=== PATIENT | female | born 2000 | race Hispanic/Latino ===

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

== ENCOUNTER 2021-08-29 19:32 | Emergency (ER) | payer OTHER, MEDICAID, SELFPAY ==
[2021-08-29] VITALS (7 sets, daily range): BP systolic 125–155; BP diastolic 80–93; PULSE 84–100; RESP 14–24; TEMP 36.6; O2SAT 97–100
--- NOTE | 2021-08-29 19:45 | DI.RAD.S_ITS ---
PROCEDURE: XR CHEST 1V INDICATIONS: chest pain TECHNIQUE: One view of the chest was acquired. COMPARISON: [facility], CR, XR CHEST 1V, 04/19/2019, 20:20. FINDINGS: Surgical changes and devices: None. Lungs and pleura: Lungs are clear. No pleural effusions or pneumothorax. Mediastinum: Mediastinal contours appear normal. Heart size is normal. Bones and chest wall: No suspicious bony lesions. Overlying soft tissues appear unremarkable. IMPRESSION: No acute cardiopulmonary abnormality. Dictated by: Nba Power M.D. on 08/29/2021 at 20:06 Approved by: Nba Power M.D. on 08/29/2021 at 20:06
--- NOTE | 2021-08-29 19:46 | ED_ITS ---
HPI - Chest Pain General Chief Complaint: Chest Pain Stated Complaint: Chest Pains Time Seen by Provider: 08/29/21 19:34 Source: patient Mode of arrival: Ambulatory History of Present Illness HPI narrative: 21-year-old female nonsmoker without chronic medical problems presents with a chief complaint of anterior chest and epigastric pain that started about 24 hours ago. She states it is worse with a deep breath and with palpation, she f eels like it may also give worse when she eats. She has had some nausea and a few episodes of vomiting that did not seem to affect her discomfort. She denies any obvious palliation or radiation of her discomfort. She is a little bit short of breath and has had some cough. She denies fever or chills nor recent travel. She has had no history of blood clot or recent injury. She denies lower extremity pain or swelling. She has had no vaginal bleeding or discharge and denies urinary symptoms such as dysuria, frequency or urgency. Related Data Previous Rx's Medication Instructions Recorded ketorolac 10 mg tablet 10 mg PO Q6H PRN #14 tab 08/29/21 pantoprazole 40 mg tablet,delayed 40 mg PO DAILY #30 tab 08/29/21 release (Protonix) Allergies Allergy/AdvReac Type Severity Reaction Status Date / Time No Known Drug Allergies Allergy Verified 04/19/19 19:12 Review of Systems Review of Systems Narrative: GENERAL: Denies chills, fatigue, malaise, fever, sweats. HEENT: Denies sinus pain, ear pain, sore throat, difficulty swallowing, dizziness. RESPIRATORY: See HPI CARDIOVASCULAR: See HPI GASTROINTESTINAL: See HPI : Denies dysuria, frequency, incontinence, hematuria, urinary retention. MUSCULOSKELETAL: denies weakness, joint pain, or bony pain SKIN: Denies rash, skin lesions, or other NEUROLOGIC: Denies weakness, headache, numbness, change in speech, confusion, seizures, incoordination. PSYCHIATRIC: No concerning psychosocial issues. 12 point review of systems is negative except for those stated above Patient History Family History Mother Heart attack Social History Smoking Status: Never smoker Smoking Status: Never smoker alcohol intake frequency: 0-2 drinks per day Substance Use Type: does not use Exam Narrative Exam Narrative: GENERAL: [21 year old patient appears stated age. Well-developed patient, in mild distress. Obviously uncomfortable, tearful HEAD: Atraumatic. Normocephalic. EYES: Pupils equal round and reactive. Extraocular motions intact. No scleral icterus. No injection or drainage. ENT: Nose without bleeding, purulent drainage. Throat without erythema, tonsillar hypertrophy or exudate. Airway patent. NECK: Trachea midline. Non tender CARDIOVASCULAR: Regular rate and rhythm without murmurs, gallops, or rubs. C entral anterior chest tender to palpation, this worsens the pain the brought her in RESPIRATORY: Clear to auscultation. Breath sounds equal bilaterally. No wheezes, rales, or rhonchi. GASTROINTESTINAL: Abdomen soft, non-tender, nondistended. EXTREMITIES: No edema or joint tenderness. BACK: Nontender without deformity or crepitance. No flank tenderness. NEURO: AOx3. SKIN: No rash or erythema of visible areas Initial Vital Signs Initial Vital Signs: Vital Signs Temperature 97.9 F 08/29/21 19:44 Pulse Rate 91 H 08/29/21 19:44 Respiratory Rate 22 08/29/21 19:44 Blood Pressure 155/93 H 08/29/21 19:44 Pulse Oximetry 99 08/29/21 19:44 Course Orders Ordered: ED Orders 08/29/21 19:45 XR chest 1V Stat EKG-12 Lead Stat 08/29/21 19:47 CRP [C-Reactive Protein Quant] Stat Complete Blood Count AUTO DIFF Stat Comprehensive Metabolic Panel Stat D Dimer Stat ESR [Erythrocyte Sedimentation Rate] Stat Lipase Stat Magnesium Stat NT-proBNP (BNP-Adult 18+) Stat Troponin & CK Cardiac Panel Stat 08/29/21 19:50 US abdomen limited Stat Discontinued Medications Al Hydrox/Mg Hydrox/Simethicone 20 ml/ Lidocaine HCl 15 ml 0 ml PO NOW ONE Stop: 08/29/21 19:47 Last Admin: 08/29/21 20:00 Dose: 45 ml Documented by: DALITE Sodium Chloride (Normal Saline 0.9%) 1,000 mls @ 150 mls/hr IV CONT SWAPNA Last Infusion: 08/29/21 21:10 Dose: 0 mls/hr Documented by: Admin: 08/29/21 19:59 Dose: 150 mls/hr Documented by: MYAH Ketorolac Tromethamine (Ketorolac 30 Mg/Ml Vial) 15 mg IV NOW ONE Stop: 08/29/21 19:47 Last Admin: 08/29/21 19:59 Dose: 15 mg Documented by: MYAH Pantoprazole Sodium (Pantoprazole 40 Mg Vial) 40 mg IV NOW ONE Stop: 08/29/21 19:47 Last Admin: 08/29/21 20:00 Dose: 40 mg Documented by: MYAH Reevaluation(s) Reevaluation #1: Patient has significant, if not complete resolution of symptoms after above- stated therapies Vital Signs Vital signs: Vital Signs - 8 hr 08/29/21 20:00 08/29/21 20:30 08/29/21 21:00 Pulse Rate 98 H 88 98 H Respiratory Rate 14 24 24 Blood Pressure Pulse Oximetry 100 100 99 08/29/21 21:30 08/29/21 21:40 Pulse Rate 85 84 Respiratory Rate 24 23 Blood Pressure 125/80 Pulse Oximetry 99 97 MDM - Chest Pain Lab Data Result diagrams: 08/29/21 19:47 08/29/21 19:47 Labs: Lab Results 08/29/21 08/29/21 08/29/21 Range/Units 19:47 19:47 19:47 WBC 12.4 H (4.5-11.0) X10^3/uL RBC 5.02 (4.0-5.2) X10^6/uL Hgb 14.5 (12.0-16.0) g/dL Hct 42.7 (36-46) % MCV 85.2 (80-100) fL MCH 28.9 (26-34) PG MCHC 34.0 (30-36) % RDW 13.5 (11.6-14.8) % Plt Count 291 (150-400) X10^3/uL Neut % (Auto) 61.6 (50-75) % Lymph % (Auto) 29.7 (25-40) % [place] % (Auto) 6.7 (3-14) % Eos % (Auto) 1.4 L (2-4) % Baso % (Auto) 0.6 (0-2) % Neut # (Auto) 7700 H (7893-6729) /uL Lymph # (Auto) 3700 (8353-9086) /uL [place] # (Auto) 800 (0-900) /uL Eos # (Auto) 200 (0-450) /uL Baso # (Auto) 100 (0-100) /uL ESR 20 (0-20) MM/HR D-Dimer (<230) ng/mL Sodium 143 (137-145) mmol/L Potassium 4.5 (3.4-5.1) mmol/L Chloride 107 (98-107) mmol/L Carbon Dioxide 27 (22-32) mmol/L BUN 13 (7-17) mg/dL Creatinine 0.69 (0.52-1.04) mg/dL Estimated GFR > 60 (>60) mL/min BUN/Creatinine Ratio 18.8 (6-22) Glucose 101 H (70-100) mg/dL Calcium 9.4 (8.4-10.2) mg/dL Magnesium 2.2 (1.6-2.3) mg/dL Total Bilirubin 0.7 (0.2-1.3) mg/dL AST 30 (14-36) IU/L ALT 20 (<35) IU/L Alkaline Phosphatase 101 (38-126) U/L Total Creatine Kinase 91 (30-135) U/L CK-MB (CK-2) TNP CK-MB (CK-2) Rel Index TNP Troponin I < 0.012 (0.01-0.034) ng/mL C-Reactive Protein (<1.0) mg/dL NT-Pro-B Natriuret Pep (<125) pg/mL Total Protein 8.8 H (6.3-8.2) g/dL Albumin 4.9 (3.5-5.0) g/dL Globulin 3.9 (1.7-4.1) g/dL Albumin/Globulin Ratio 1.3 (1.0-2.8) Lipase 78 (23-300) U/L 08/29/21 08/29/21 Range/Units 19:47 19:47 WBC (4.5-11.0) X10^3/uL RBC (4.0-5.2) X10^6/uL Hgb (12.0-16.0) g/dL Hct (36-46) % MCV (80-100) fL MCH (26-34) PG MCHC (30-36) % RDW (11.6-14.8) % Plt Count (150-400) X10^3/uL Neut % (Auto) (50-75) % Lymph % (Auto) (25-40) % [place] % (Auto) (3-14) % Eos % (Auto) (2-4) % Baso % (Auto) (0-2) % Neut # (Auto) (2526-0715) /uL Lymph # (Auto) (6914-9296) /uL [place] # (Auto) (0-900) /uL Eos # (Auto) (0-450) /uL Baso # (Auto) (0-100) /uL ESR (0-20) MM/HR D-Dimer < 200 (<230) ng/mL Sodium (137-145) mmol/L Potassium (3.4-5.1) mmol/L Chloride (98-107) mmol/L Carbon Dioxide (22-32) mmol/L BUN (7-17) mg/dL Creatinine (0.52-1.04) mg/dL Estimated GFR (>60) mL/min BUN/Creatinine Ratio (6-22) Glucose (70-100) mg/dL Calcium (8.4-10.2) mg/dL Magnesium (1.6-2.3) mg/dL Total Bilirubin (0.2-1.3) mg/dL AST (14-36) IU/L ALT (<35) IU/L Alkaline Phosphatase (38-126) U/L Total Creatine Kinase (30-135) U/L CK-MB (CK-2) CK-MB (CK-2) Rel Index Troponin I (0.01-0.034) ng/mL C-Reactive Protein 0.7 (<1.0) mg/dL NT-Pro-B Natriuret Pep 30 (<125) pg/mL Total Protein (6.3-8.2) g/dL Albumin (3.5-5.0) g/dL Globulin (1.7-4.1) g/dL Albumin/Globulin Ratio (1.0-2.8) Lipase (23-300) U/L Imaging Data US - abdomen: Radiologist's Impression: [address] [address] Ultrasound Report Signed Patient: SYLVIA HAMMOND MR#: [id number] : 2000 Acct:[id number] Age/Sex: 21 / F Date of Service: 08/29/21 Loc: ED Accession Number: [id number] ?? Procedure: US abdomen limited Ordering Provider: Jacques Danielle D.O. PROCEDURE:? US ABDOMEN LIMITED ? INDICATIONS:? EPIGASTRIC PAIN; N/V ? TECHNIQUE:? Real-time scanning was performed of the abdominal, with image documentation.? ? COMPARISON:? None. ? FINDINGS:? ? Liver:? Liver is normal in size and homogeneous in echotexture.? Left lobe of the liver is not well seen due to bowel gas.? ? Gallbladder:? Nondilated. No stones or sludge. Normal gallbladder wall thickness. No pericholecystic fluid. Negative sonographic Rivera's sign.? ? Biliary ducts:? Intrahepatic bile ducts are non-dilated.? Extrahepatic bile duct caliber measures 3 mm.? Normal is 6-7 mm or less in diameter, or 10 mm or less post-cholecystectomy.? ? Pancreas:? Not well seen.? ? ? IMPRESSION:? Exam is somewhat limited due to acoustic windows. ? No acute cholecystitis.? No gallstones. ? Dictated by: Nba Power M.D. on 08/29/2021 at 20:47 ? ? Chest x-ray: Radiologist's Impression: [place] [address] XRay Report Signed Patient: SYLVIA HAMMOND MR#: [id number] : 2000 Acct:[id number] Age/Sex: 21 / F Date of Service: 08/29/21 Loc: ED Accession Number: [id number] ?? Procedure: XR chest 1V Ordering Provider: Jacques Danielle D.O. PROCEDURE:? XR CHEST 1V ? INDICATIONS:? chest pain ? TECHNIQUE:? One view of the chest was acquired.? ? COMPARISON:? [facility], , XR CHEST 1V, 04/19/2019, 20:20. ? FINDINGS:? ? Surgical changes and devices:? None.? ? Lungs and pleura:? Lungs are clear.? No pleural effusions or pneumothorax.? ? Mediastinum:? Mediastinal contours appear normal.? Heart size is normal.? ? Bones and chest wall:? No suspicious bony lesions.? Overlying soft tissues appear unremarkable.? ? IMPRESSION:? No acute cardiopulmonary abnormality. ? ? ? Dictated by: Nba Power M.D. on 08/29/2021 at 20:06 ? ? Approved by: Nba Power M.D. on 08/29/2021 at 20:06 ? MDM Narrative Medical decision making narrative: Multiple causes of chest pain considered including CO, PE, pneumothorax, pneumonia, aortic dissection, and pleurisy. Patient reports no radiation, no diaphoresis, no provocation with exertion, and no vomiting Gallbladder and pancreatic disease considered but thought unlikely given lack of lab or imaging findings Patient's symptoms improved over duration of stay with above-stated therapies. Findings and discharge diagnosis discussed with patient/family followed by verbalization of understanding Return precautions discussed with patient/family whom verbalize understanding. Discharge Plan Departure Patient Disposition: Home Clinical Impression: Atypical chest pain Instructions: DI for Atypical Chest Pain Activity Restrictions/Additional Instructions: *You have been diagnosed with [atypical chest pain. As we discussed your hist ory and physical exam as well as labs, EKG and imaging are very reassuring and there is no evidence of heart attack, blood clot, swelling around your heart, gallbladder disease or other diagnosis that would require a specific or immediate intervention *What to do: *Please continue to take your regular medications as directed. [x ] New medication prescriptions sent to your pharmacy: [[facility] in [place] ] [ ] New medication written as a paper prescription [ ] No new medications given *Please follow up with your primary care provider in 2-3 days, call for an appointment. Let them know you were seen in the Emergency Department and that we ask that you be seen in follow up. We will electronically transmit a record of today's note if your PCP is in our system *If you do not have a primary care provider please contact the [facility] Resource line at [phone]. They will ask some questions about your medical history and help get you set up with a doctor in the community. *Return to Emergency Department if you should have any new, worsening or concerning symptoms, such as [fever greater than 101 F, shaking chills, worsening pain, persistent vomiting or other bothersome symptoms] Prescriptions: New ketorolac 10 mg tablet 10 mg PO Q6H PRN (Reason: pain) Qty: 14 0RF pantoprazole [Protonix] 40 mg tablet,delayed release (DR/EC) 40 mg PO DAILY Qty: 30 0RF
--- NOTE | 2021-08-29 19:50 | DI.US.S_ITS ---
PROCEDURE: US ABDOMEN LIMITED INDICATIONS: EPIGASTRIC PAIN; N/V TECHNIQUE: Real-time scanning was performed of the abdominal, with image documentation. COMPARISON: None. FINDINGS: Liver: Liver is normal in size and homogeneous in echotexture. Left lobe of the liver is not well seen due to bowel gas. Gallbladder: Nondilated. No stones or sludge. Normal gallbladder wall thickness. No pericholecystic fluid. Negative sonographic Rivera's sign. Biliary ducts: Intrahepatic bile ducts are non-dilated. Extrahepatic bile duct caliber measures 3 mm. Normal is 6-7 mm or less in diameter, or 10 mm or less post-cholecystectomy. Pancreas: Not well seen. IMPRESSION: Exam is somewhat limited due to acoustic windows. No acute cholecystitis. No gallstones. Dictated by: Nba Power M.D. on 08/29/2021 at 20:47 Approved by: Nba Power M.D. on 08/29/2021 at 20:49
[2021-08-29] MEDS: KETOROLAC 30 MG/ML VIAL 15 MG IV (19:59)
[2021-08-29] MEDS: SODIUM CHLORIDE 0.9% 1,000 ML 150 ML IV (19:59)
[2021-08-29 20:00] LABS: Add Manual Diff / Slide Review NO; Basophils Absolute Auto 100 /uL (0-100); Basophils Percent Auto 0.6 % (0-2); Eosinophils Absolute Auto 200 /uL (0-450); Eosinophils Percent Auto 1.4 % (2-4); Hematocrit 42.7 % (36-46); Hemoglobin 14.5 g/dL (12.0-16.0); Lymphocytes Absolute Auto 3700 /uL (1100-4500); Lymphocytes Percent Auto 29.7 % (25-40); Mean Corpuscular Hemoglobin 28.9 PG (26-34); Mean Corpuscular Volume 85.2 fL (80-100); Monocytes Absolute Auto 800 /uL (0-900); Monocytes Percent Auto 6.7 % (3-14); Neutrophils Absolute Auto 7700 /uL (1500-7000); Neutrophils Percent Auto 61.6 % (50-75); Platelet Count 291 X10^3/uL (150-400); Red Blood Cell Count 5.02 X10^6/uL (4.0-5.2); Red Cell Distribution Width 13.5 % (11.6-14.8); White Blood Cell Count 12.4 X10^3/uL (4.5-11.0)
[2021-08-29] MEDS: MAG HYDROX/ALUMINUM/SIMETH SUS 20 ML, LIDOCAINE VISCOUS 2% 15 ML PO (20:00)
[2021-08-29] MEDS: PANTOPRAZOLE 40 MG VIAL IV (20:00)
[2021-08-29 20:06] LABS: D Dimer < 200 ng/mL (<230)
[2021-08-29 20:07] LABS: Alanine Aminotransferase 20 IU/L (<35); Albumin 4.9 g/dL (3.5-5.0); Albumin Globulin Ratio 1.3 (1.0-2.8); Alkaline Phosphatase 101 U/L (38-126); Aspartate Aminotransferase 30 IU/L (14-36); BUN Creatinine Ratio 18.8 (6-22); Bilirubin Total 0.7 mg/dL (0.2-1.3); Blood Urea Nitrogen 13 mg/dL (7-17); Calcium 9.4 mg/dL (8.4-10.2); Carbon Dioxide 27 mmol/L (22-32); Chloride 107 mmol/L (98-107); Creatine Kinase 91 U/L (30-135); Estimated Glomerular Filt Rate > 60 mL/min (>60); Globulin 3.9 g/dL (1.7-4.1); Glucose 101 mg/dL (70-100); Lipase 78 U/L (23-300); Magnesium 2.2 mg/dL (1.6-2.3); Potassium 4.5 mmol/L (3.4-5.1); Sodium 143 mmol/L (137-145); Total Protein 8.8 g/dL (6.3-8.2)
[2021-08-29 20:11] LABS: C-Reactive Protein Quant 0.7 mg/dL (<1.0)
[2021-08-29 20:12] LABS: HEMOLYSIS 86 (0-50)
[2021-08-29 20:16] LABS: NT-proBNP (BNP-Adult 18+) 30 pg/mL (<125)
[2021-08-29 20:17] LABS: Erythrocyte Sedimentation Rate 20 MM/HR (0-20)
[2021-08-29 20:19] LABS: Troponin I < 0.012 ng/mL (0.01-0.034)
== END 2021-08-29 22:24 | disposition home or self-care (01) ==
PROVIDERS: Emergency Provider Emergency Medicine
DX: R07.89 Other chest pain (principal)
CPT/HCPCS: 36415; 71045; 76705; 80053; 82550; 83690; 83735; 83880; 84484; 85025; 85379; 85651; 86140; 93005; 96361; 96374; 96375; 99284; C9113; J1885

== ENCOUNTER 2021-08-31 20:53 | Emergency (ER) | payer OTHER, MEDICAID, SELFPAY ==
[2021-08-31 20:58] VITALS: BP 143/91; PULSE 98; RESP 17; TEMP 37.1; O2SAT 95; BMI 43.8
[2021-08-31 21:35] VITALS: BP 133/91; PULSE 82; RESP 18; TEMP 36.8; O2SAT 99
--- NOTE | 2021-08-31 21:58 | ED.CHESTPAIN ---
HPI - Chest Pain General Chief Complaint: Chest Pain Stated Complaint: chest pain Time Seen by Provider: 08/31/21 21:16 Source: patient Mode of arrival: Ambulatory Limitations: no limitations History of Present Illness HPI narrative: 21-year-old female nonsmoker without chronic medical problems presents with a chief complaint of anterior chest and epigastric pain that started a few days ago. She was seen and evaluated in had extensive evaluation including labs, ultrasound and chest x-ray. She had improvement in symptoms after anti-inflammatories nausea meds and antacids and was discharged home with similar prescriptions. She returns because her pain in the upper belly is worse and she has been vomiting. She states that she experiences brief relief of her symptoms after vomiting. She states her pain is worse when she lays flat. She denies any fever or chills. She is not short of breath. Related Data Previous Rx's Medication Instructions Recorded ketorolac 10 mg tablet 10 mg PO Q6H PRN #14 tab 08/29/21 pantoprazole 40 mg tablet,delayed 40 mg PO DAILY #30 tab 08/29/21 release (Protonix) ondansetron 4 mg disintegrating 4 mg PO TID-QID PRN #10 tab 09/01/21 tablet Allergies Allergy/AdvReac Type Severity Reaction Status Date / Time No Known Drug Allergies Allergy Verified 04/19/19 19:12 Review of Systems Review of Systems Narrative: GENERAL: Denies chills, fatigue, malaise, fever, sweats. HEENT: Denies sinus pain, ear pain, sore throat, difficulty swallowing, dizziness. RESPIRATORY: Denies dyspnea, cough, wheezing, hemoptysis, sputum. CARDIOVASCULAR: Denies chest pain, palpitations, orthopnea, edema, GASTROINTESTINAL: See HPI : Denies dysuria, frequency, incontinence, hematuria, urinary retention. MUSCULOSKELETAL: denies weakness, joint pain, or bony pain SKIN: Denies rash, skin lesions, or other NEUROLOGIC: Denies weakness, headache, numbness, change in speech, confusion, seizures, incoordination. PSYCHIATRIC: No concerning psychosocial issues. 12 point review of systems is negative except for those stated above Patient History Family History Mother Heart attack Social History Smoking Status: Never smoker Smoking Status: Never smoker alcohol intake frequency: holidays/special occasions only Substance Use Type: does not use Exam Narrative Exam Narrative: GENERAL: [21] year old patient appears stated age. Well-developed patient, in mild distress. HEAD: Atraumatic. Normocephalic. EYES: Pupils equal round and reactive. Extraocular motions intact. No scleral icterus. No injection or drainage. ENT: Nose without bleeding, purulent drainage. Throat without erythema, tonsillar hypertrophy or exudate. Airway patent. NECK: Trachea midline. Non tender CARDIOVASCULAR: Regular rate and rhythm without murmurs, gallops, or rubs. RESPIRATORY: Clear to auscultation. Breath sounds equal bilaterally. No wheezes, rales, or rhonchi. GASTROINTESTINAL: Abdomen soft, tender in the epigastric, nondistended. EXTREMITIES: No edema or joint tenderness. BACK: Nontender without deformity or crepitance. No flank tenderness. NEURO: AOx3. SKIN: No rash or erythema of visible areas Initial Vital Signs Initial Vital Signs: Vital Signs Temperature 98.7 F 08/31/21 20:58 Pulse Rate 98 H 08/31/21 20:58 Respiratory Rate 17 08/31/21 20:58 Blood Pressure 143/91 H 08/31/21 20:58 Pulse Oximetry 95 08/31/21 20:58 Course Orders Ordered: ED Orders 08/31/21 21:01 EKG-12 Lead Stat 08/31/21 22:10 Complete Blood Count AUTO DIFF Stat Comprehensive Metabolic Panel Stat Lipase Stat NT-proBNP (BNP-Adult 18+) Stat Procalcitonin Stat Troponin & CK Cardiac Panel Stat 08/31/21 22:44 US abdomen limited Stat 08/31/21 23:35 CT abdomen pelvis w con Stat Sodium Chloride (Normal Saline 0.9%) 1,000 mls @ 150 mls/hr IV CONT SWAPNA Last Admin: 08/31/21 22:28 Dose: 150 mls/hr Documented by: CINDY Discontinued Medications Ondansetron HCl (Ondansetron 4 Mg/2 Ml Inj) 4 mg IV NOW ONE Stop: 08/31/21 22:00 Last Admin: 08/31/21 22:28 Dose: 4 mg Documented by: CINDY Pantoprazole Sodium (Pantoprazole 40 Mg Vial) 40 mg IV NOW ONE Stop: 08/31/21 22:04 Last Admin: 08/31/21 22:28 Dose: 40 mg Documented by: CINDY Vital Signs Vital signs: Vital Signs - 8 hr 08/31/21 20:58 08/31/21 21:35 Temperature 98.7 F 98.2 F Pulse Rate 98 H 82 Respiratory Rate 17 18 Blood Pressure 143/91 H 133/91 H Pulse Oximetry 95 99 MDM - Chest Pain Lab Data Result diagrams: 08/31/21 22:10 08/31/21 22:10 Labs: Lab Results 08/31/21 08/31/21 Range/Units 22:10 22:10 WBC 10.9 (4.5-11.0) X10^3/uL RBC 4.56 (4.0-5.2) X10^6/uL Hgb 13.2 (12.0-16.0) g/dL Hct 38.7 (36-46) % MCV 85.0 (80-100) fL MCH 29.0 (26-34) PG MCHC 34.1 (30-36) % RDW 13.4 (11.6-14.8) % Plt Count 268 (150-400) X10^3/uL Neut % (Auto) 50.6 (50-75) % Lymph % (Auto) 39.3 (25-40) % [place] % (Auto) 7.8 (3-14) % Eos % (Auto) 1.4 L (2-4) % Baso % (Auto) 0.9 (0-2) % Neut # (Auto) 5500 (2098-9076) /uL Lymph # (Auto) 4300 (4829-7533) /uL [place] # (Auto) 800 (0-900) /uL Eos # (Auto) 200 (0-450) /uL Baso # (Auto) 100 (0-100) /uL Sodium 142 (137-145) mmol/L Potassium 3.8 (3.4-5.1) mmol/L Chloride 107 (98-107) mmol/L Carbon Dioxide 28 (22-32) mmol/L BUN 12 (7-17) mg/dL Creatinine 0.69 (0.52-1.04) mg/dL Estimated GFR > 60 (>60) mL/min BUN/Creatinine Ratio 17.4 (6-22) Glucose 97 (70-100) mg/dL Calcium 9.1 (8.4-10.2) mg/dL Total Bilirubin 0.6 (0.2-1.3) mg/dL AST 20 (14-36) IU/L ALT 17 (<35) IU/L Alkaline Phosphatase 96 (38-126) U/L Total Creatine Kinase 78 (30-135) U/L CK-MB (CK-2) TNP CK-MB (CK-2) Rel Index TNP Troponin I < 0.012 (0.01-0.034) ng/mL NT-Pro-B Natriuret Pep 21 (<125) pg/mL Total Protein 7.7 (6.3-8.2) g/dL Albumin 4.4 (3.5-5.0) g/dL Globulin 3.3 (1.7-4.1) g/dL Albumin/Globulin Ratio 1.3 (1.0-2.8) Lipase 70 (23-300) U/L Procalcitonin 0.03 (<0.5) ng/mL Point of Care Testing Test Results Negative Urine Dip Bedside Urine Glucose Negative Bedside Urine Bilirubin - Negative Bedside Urine Ketone - Negative Urine Specific [place] 1.030 Bedside Urine Occult Blood +/- Bedside Urine pH 6.0 Bedside Urine Protein - Negative Bedside Urine Urobilinogen - Negative Bedside Urine Nitrite - Negative Bedside Urine Leukocytes - Negative Esterase Imaging Data US - abdomen: Radiologist's Impression: [place] [id number] Ultrasound Report Signed Patient: SYLVIA HAMMOND MR#: [id number] : 2000 Acct:[id number] Age/Sex: 21 / F Date of Service: 08/31/21 Loc: ED Accession Number: [id number] ?? Procedure: US abdomen limited Ordering Provider: Jacques Danielle D.O. PROCEDURE:? US ABDOMEN LIMITED ? INDICATIONS:? EPIGASTRIC PAIN ? TECHNIQUE:? Real-time scanning was performed of the abdominal and retroperitoneal organs, with image documentation.? ? COMPARISON:? [facility], US ABDOMEN LIMITED, 08/29/2021, 20:25. ? FINDINGS:? ? Liver:? Normal size.? Increased in echogenicity. ? Gallbladder:? Nondilated. No stones or sludge. Normal gallbladder wall thickness. No pericholecystic fluid. Negative sonographic Rivera's sign.? ? Biliary ducts:? Intrahepatic bile ducts are non-dilated.? Extrahepatic bile duct caliber measures 6 mm.? Normal is 6-7 mm or less in diameter, or 10 mm or less post-cholecystectomy.? ? Pancreas:? Visualized portions of the pancreas are sonographically normal.? Tail not well seen due to bowel gas. ? ? IMPRESSION:? 1. No acute cholecystitis demonstrated.? No gallstones. ? 2. Increased hepatic echogenicity most consistent with hepatic steatosis. Other forms of hepatocellular disease could have similar appearance. ? ? ? Dictated by: Nba Power M.D. on 08/31/2021 at 23:46 ? ? Approved by: Nba Power M.D. on 08/31/2021 at 23:47 ? 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 All Time ??:?? All Subcategories Filter Laboratory Imaging Microbiology Pathology Blood Bank Tests Cardiovascular Other Specialty DATE TYPE STATUS REF RANGE/AUTHOR Hx 08/31/21 23:35 Abdomen/Pelvis CT Signed Call,Nba 08/31/21 22:44 Abdomen Ultrasound Signed Call,Nba 08/29/21 19:50 Abdomen Ultrasound Signed Call,Nba 08/29/21 19:45 Chest X-Ray Signed Call,Nba 04/19/19 20:10 Chest X-Ray Signed Leena Ward [facility] ED 21, F?2000 MRN#? [id number] REG ER,?Main ED??R07?? 170.18cm 127.006kg BMI: 43.9kg/m? Chest Pain Acc#? [id number] Resus Status Not Ordered No Hx Avail Special Indicators No Data to Display Home Meds Not Confirmed Prescription Monitoring Program MEDICATIONS (INSTRUCTIONS) LAST TAKEN Active ??ketorolac ??10 [id number]#14 tab ??pantoprazole [Protonix] ??40 mgPODAILY#30 tab Allergies No Known Drug Allergies Problems ? ONSET Atypical chest pain Vital Signs 08/31/21 21:35 BP 133/91?H Pulse 82? Resp 18? Temp 98.2 F? O2 Sat 99? Delivery Room Air? Diagnostics Reports LIQUIDANO NAVDEEP,SYLVIA??21??F??2000 ? Allergy/Adv: No Known Drug Allergies (More??) Close Abdomen/Pelvis CT (Signed) Call, - 08/31/21 Abdomen Ultrasound (Signed) Call,08/31/21 Abdomen Ultrasound (Signed) Call,08/29/21 Chest X-Ray (Signed) Call,08/29/21 Chest X-Ray (Signed) Leena Ward - 04/19/19 Launch?[place] [address] CT Scan Report Signed Patient: SYLVIA HAMMOND MR#: [id number] : 2000 Acct:[id number] Age/Sex: 21 / F Date of Service: 08/31/21 Loc: ED Accession Number: [id number] ?? Procedure: CT abdomen pelvis w con Ordering Provider: Jacques Danielle D.O. PROCEDURE:? CT ABDOMEN PELVIS W CON ? INDICATIONS:? severe abdominal pain ? TECHNIQUE:? After the administration of IV contrast, axial sections were acquired from the lung bases to the pubic symphysis.? Coronal and sagittal reformats were performed.? For radiation dose reduction, the following was used:? automated exposure control, adjustment of mA and/or kV according to patient size. ? COMPARISON:? [facility], , ABDOMEN LIMITED, 08/31/2021, 22:59. ? FINDINGS:? Image quality:? Excellent.? ? Lung bases:? Unremarkable.? ? Heart:? No significant findings. ? ? ABDOMEN: Liver:? No focal lesion.? ? Gallbladder:? Not distended.? No calcified gallstones. Biliary ducts:? Unremarkable.? ? Pancreas:? No peripancreatic fluid collection. Spleen:? No splenomegaly. Adrenal Glands:? No nodule. Kidneys and Ureters:? No hydronephrosis.? ? ? Stomach and Bowel:? Stomach, small bowel loops, and colon are unremarkable.? Appendix is not dilated, ().? Diverticulosis. Peritoneum:? No abnormal intraperitoneal fluid.? No free air.? ? Ventral Wall: ? No hernia.? Abdominal Nodes:? No retroperitoneal or mesenteric adenopathy by size criteria.? Vessels:? Aorta and inferior vena cava are normal in size.? ? PELVIS: Pelvic Organs:? Anteverted uterus.? ? Bladder:? No stones.? ? Pelvic Nodes: No enlarged lymph nodes.? Miscellaneous: No inguinal hernias are seen. ? ? ? Bones:? No suspicious lesion. ? ? IMPRESSION:? 1. Source for abdominal pain is not identified.? No free fluid.? ? 2. No bowel obstruction.? The appendix is not distended. ? ? ? Dictated by: Nba Power M.D. on 09/01/2021 at 0:27 ? ? Approved by: Nba Power M.D. on 09/01/2021 at 0:31 ? MDM Narrative Medical decision making narrative: Patient has repeat visit for epigastric pain, claiming a hurts worse this time. Her history and physical exam as well as labs and imaging are reassuring. She has significant improvement in symptoms with above-stated therapies. Her pain is well controlled and she is tolerating orals. There is no evidence of gallbladder disease, bowel obstruction or pancreatitis. Return precautions given and questions answered to her apparent satisfaction Discharge Plan Departure Patient Disposition: Home Instructions: DI for Epigastric Pain Activity Restrictions/Additional Instructions: *You have been diagnosed with [epigastric pain. Your history and physical exam are reassuring, labs are unremarkable and the repeat ultrasound and CT showed no significant findings. *What to do: *Please continue to take your regular medications as directed. [x ] New medication prescriptions sent to your pharmacy: [ ] [ ] New medication written as a paper prescription [ ] No new medications given *Please follow up with your primary care provider in 2-3 days, call for an appointment. Let them know you were seen in the Emergency Department and that we ask that you be seen in follow up. We will electronically transmit a record of today's note if your PCP is in our system *If you do not have a primary care provider please contact the [facility] Resource line at [phone]. They will ask some questions about your medical history and help get you set up with a doctor in the community. *Return to Emergency Department if you should have any new, worsening or concerning symptoms, such as [fever greater than 101 F, shaking chills, worsening pain, persistent vomiting or other bothersome symptoms] Prescriptions: New ondansetron 4 mg tablet,disintegrating 4 mg PO TID-QID PRN (Reason: nausea and vomiting) Qty: 10 0RF No Action ketorolac 10 mg tablet 10 mg PO Q6H PRN (Reason: pain) Qty: 14 0RF pantoprazole [Protonix] 40 mg tablet,delayed release (DR/EC) 40 mg PO DAILY Qty: 30 0RF Referrals: Nicolas Carr MD [Physician] -
[2021-08-31 22:21] LABS: Add Manual Diff / Slide Review NO; Basophils Absolute Auto 100 /uL (0-100); Basophils Percent Auto 0.9 % (0-2); Eosinophils Absolute Auto 200 /uL (0-450); Eosinophils Percent Auto 1.4 % (2-4); Hematocrit 38.7 % (36-46); Hemoglobin 13.2 g/dL (12.0-16.0); Lymphocytes Absolute Auto 4300 /uL (1100-4500); Lymphocytes Percent Auto 39.3 % (25-40); Mean Corpuscular HGB Conc 34.1 % (30-36); Monocytes Absolute Auto 800 /uL (0-900); Monocytes Percent Auto 7.8 % (3-14); Neutrophils Absolute Auto 5500 /uL (1500-7000); Neutrophils Percent Auto 50.6 % (50-75); Platelet Count 268 X10^3/uL (150-400); Red Blood Cell Count 4.56 X10^6/uL (4.0-5.2); Red Cell Distribution Width 13.4 % (11.6-14.8); White Blood Cell Count 10.9 X10^3/uL (4.5-11.0)
[2021-08-31] MEDS: PANTOPRAZOLE 40 MG VIAL IV (22:28)
[2021-08-31] MEDS: ONDANSETRON 4 MG/2 ML INJ IV (22:28)
[2021-08-31] MEDS: SODIUM CHLORIDE 0.9% 1,000 ML 150 ML IV (22:28)
[2021-08-31 22:29] LABS: Alanine Aminotransferase 17 IU/L (<35); Albumin 4.4 g/dL (3.5-5.0); Albumin Globulin Ratio 1.3 (1.0-2.8); Alkaline Phosphatase 96 U/L (38-126); Aspartate Aminotransferase 20 IU/L (14-36); BUN Creatinine Ratio 17.4 (6-22); Bilirubin Total 0.6 mg/dL (0.2-1.3); Blood Urea Nitrogen 12 mg/dL (7-17); Calcium 9.1 mg/dL (8.4-10.2); Carbon Dioxide 28 mmol/L (22-32); Chloride 107 mmol/L (98-107); Creatine Kinase 78 U/L (30-135); Estimated Glomerular Filt Rate > 60 mL/min (>60); Globulin 3.3 g/dL (1.7-4.1); Glucose 97 mg/dL (70-100); HEMOLYSIS < 15 (0-50); Lipase 70 U/L (23-300); Potassium 3.8 mmol/L (3.4-5.1); Sodium 142 mmol/L (137-145); Total Protein 7.7 g/dL (6.3-8.2)
[2021-08-31 22:41] LABS: NT-proBNP (BNP-Adult 18+) 21 pg/mL (<125); Troponin I < 0.012 ng/mL (0.01-0.034)
--- NOTE | 2021-08-31 22:44 | DI.US.S_ITS ---
PROCEDURE: US ABDOMEN LIMITED INDICATIONS: EPIGASTRIC PAIN TECHNIQUE: Real-time scanning was performed of the abdominal and retroperitoneal organs, with image documentation. COMPARISON: [facility], , US ABDOMEN LIMITED, 08/29/2021, 20:25. FINDINGS: Liver: Normal size. Increased in echogenicity. Gallbladder: Nondilated. No stones or sludge. Normal gallbladder wall thickness. No pericholecystic fluid. Negative sonographic Rivera's sign. Biliary ducts: Intrahepatic bile ducts are non-dilated. Extrahepatic bile duct caliber measures 6 mm. Normal is 6-7 mm or less in diameter, or 10 mm or less post-cholecystectomy. Pancreas: Visualized portions of the pancreas are sonographically normal. Tail not well seen due to bowel gas. IMPRESSION: 1. No acute cholecystitis demonstrated. No gallstones. 2. Increased hepatic echogenicity most consistent with hepatic steatosis. Other forms of hepatocellular disease could have similar appearance. Dictated by: Nba Power M.D. on 08/31/2021 at 23:46 Approved by: Nba Power M.D. on 08/31/2021 at 23:47
[2021-08-31 22:45] LABS: Procalcitonin 0.03 ng/mL (<0.5)
--- NOTE | 2021-08-31 23:35 | DI.CT.S_ITS ---
PROCEDURE: CT ABDOMEN PELVIS W CON INDICATIONS: severe abdominal pain TECHNIQUE: After the administration of IV contrast, axial sections were acquired from the lung bases to the pubic symphysis. Coronal and sagittal reformats were performed. For radiation dose reduction, the following was used: automated exposure control, adjustment of mA and/or kV according to patient size. COMPARISON: [facility], , US ABDOMEN LIMITED, 08/31/2021, 22:59. FINDINGS: Image quality: Excellent. Lung bases: Unremarkable. Heart: No significant findings. ABDOMEN: Liver: No focal lesion. Gallbladder: Not distended. No calcified gallstones. Biliary ducts: Unremarkable. Pancreas: No peripancreatic fluid collection. Spleen: No splenomegaly. Adrenal Glands: No nodule. Kidneys and Ureters: No hydronephrosis. Stomach and Bowel: Stomach, small bowel loops, and colon are unremarkable. Appendix is not dilated, (2/55). Diverticulosis. Peritoneum: No abnormal intraperitoneal fluid. No free air. Ventral Wall: No hernia. Abdominal Nodes: No retroperitoneal or mesenteric adenopathy by size criteria. Vessels: Aorta and inferior vena cava are normal in size. PELVIS: Pelvic Organs: Anteverted uterus. Bladder: No stones. Pelvic Nodes: No enlarged lymph nodes. Miscellaneous: No inguinal hernias are seen. Bones: No suspicious lesion. IMPRESSION: 1. Source for abdominal pain is not identified. No free fluid. 2. No bowel obstruction. The appendix is not distended. Dictated by: Nba Power M.D. on 09/01/2021 at 0:27 Approved by: Nba Power M.D. on 09/01/2021 at 0:31
--- NOTE | 2021-09-01 01:12 | PC.NURSE ---
Gave patient PO fluids to see if she can tolerate.
[2021-09-01 01:57] VITALS: BP 136/84; PULSE 69; RESP 20; O2SAT 98
== END 2021-09-01 01:57 | disposition home or self-care (01) ==
PROVIDERS: Emergency Provider Emergency Medicine
DX: R10.13 Epigastric pain (principal); R07.89 Other chest pain
CPT/HCPCS: 36415; 74177; 76705; 80053; 81003; 81025; 82550; 83690; 83880; 84145; 84484; 85025; 93005; 96374; 96375; 99284; C9113; J2405; Q9967

== ENCOUNTER 2022-05-30 21:00 | Emergency (ER) | payer OTHER, MEDICAID, SELFPAY ==
[2022-05-30 21:08] VITALS: BP 123/78; PULSE 89; RESP 20; TEMP 36.3; O2SAT 100; BMI 45.5
[2022-05-30 23:12] LABS: Influenza A - CEPHEID Flu A NEGATIVE (NEGATIVE); Influenza B - CEPHEID Flu B NEGATIVE (NEGATIVE); Respiratory Syncytial Virus Negative (Negative)
[2022-05-30 23:16] LABS: COVID-19 CEPHEID 4-PLEX PCR Negative (Negative)
== END 2022-05-31 01:12 | disposition left against medical advice (07) ==
PROVIDERS: Emergency Provider Emergency Medicine
DX: J02.9 Acute pharyngitis, unspecified (principal); Z20.822 Contact with and (suspected) exposure to COVID-19
CPT/HCPCS: 0241U; 87070; 87077; 87147; 87186; 87880; 99282

== ENCOUNTER 2022-11-21 18:19 | Emergency (ER) | payer OTHER, MEDICAID, SELFPAY ==
[2022-11-21 18:25] VITALS: BP 134/102; PULSE 110; RESP 18; TEMP 37.2; O2SAT 100; BMI 48.4
--- NOTE | 2022-11-21 18:40 | ED.CHESTPAIN ---
HPI - Chest Pain <Shelli Raza PA-C - Last Filed: 11/21/22 19:43> General Chief Complaint: Chest Pain Stated Complaint: chest pain/bp high Time Seen by Provider: 11/21/22 18:39 Source: patient Mode of arrival: Ambulatory History of Present Illness HPI narrative: Patient is a 22-year-old female with chronic condition of gastric ulcers and asthma presenting for evaluation of chest pain on and off for the last 3 weeks. She reports that her pain worsens with external pressure on her chest and seems to occur randomly without regard to activity. She says that when it comes on she feels dizziness, faintness and shortness of breath. She notes she is felt she is had to use her albuterol inhaler 3 times in the last week. She came in today because in the last week she feels her symptoms of chest pain have worsened. She notes that when she was in the shower this morning she bent down to scrub her legs and felt the chest pain accompanied by nausea and shortness of breath. She reports still feeling some nausea at this time. She says sometimes this pain occurs when she is lying down and awakens her from her sleep. She notes that when this happened she has a sensation of heart racing. She denies any change with eating. She notes that she was diagnosed with H pylori 1 month ago and received endoscopy for evaluation of stomach ulcers. She states she takes sucralfate and omeprazole for this with only some improvement in her symptoms. She endorses headache at this time. She denies any cocaine use or other illegal drugs. She reports that her dad's parents both had heart events in their 40s and 50s and her mom received a cardiac stent when she was 30. She states that she was diagnosed several years ago with a pre heart attack. She was told that her symptoms were likely related to increased stress. She describes her pain in her chest as a sharp pain that moves up and down the middle of her chest. She denies any recent coughing or upper respiratory symptoms. She says the episodes last about 30 minutes at a time. Related Data Previous Rx's Medication Instructions Recorded ketorolac 10 mg tablet 10 mg PO Q6H PRN pain #14 tabs 08/29/21 pantoprazole 40 mg tablet,delayed 40 mg PO DAILY #30 tabs 08/29/21 release (Protonix) ondansetron 4 mg disintegrating 4 mg PO TID-QID PRN nausea and 09/01/21 tablet vomiting #10 tabs Allergies Allergy/AdvReac Type Severity Reaction Status Date / Time pork derived (porcine) Allergy Verified 11/21/22 18:33 Review of Systems <Shelli Raza PA-C - Last Filed: 11/21/22 19:43> Constitutional Constitutional: Reports system reviewed and no additional complaints, except as documented Cardiovascular Cardiovascular: Reports chest pain, Reports rapid heart rate, Denies irregular heart rhythm, Denies leg edema, Reports lightheadedness and Reports dyspnea Respiratory Respiratory: Denies cough, Denies pain on inspiration, Reports dyspnea and Denies wheezing Gastrointestinal Gastrointestinal: Reports abdominal pain, Reports constipation (Chronic), Denies diarrhea, Reports nausea and Denies vomiting Genitourinary Genitourinary: Denies dysuria Allergic/Immunologic Allergic/Immunologic: Denies wheezing Patient History <Shelli Raza PA-C - Last Filed: 11/21/22 19:43> Family History Mother Heart attack Social History Smoking Status: Never smoker Smoking Status: Never smoker alcohol intake frequency: holidays/special occasions only Substance Use Type: does not use Exam <Shelli Raza PA-C - Last Filed: 11/21/22 19:43> Initial Vital Signs Initial Vital Signs: Vital Signs Temperature 98.9 F 11/21/22 18:25 Pulse Rate 110 H 11/21/22 18:25 Respiratory Rate 18 11/21/22 18:25 Blood Pressure 134/102 H 11/21/22 18:25 Pulse Oximetry 100 11/21/22 18:25 Oxygen Delivery Method Room Air 11/21/22 18:25 GENERAL: 22 year old patient appears stated age. Well-developed patient, in no acute distress. HEAD: Atraumatic. Normocephalic. EYES: Pupils equal round and reactive. No scleral icterus. No injection or drainage. NECK: Trachea midline. CARDIOVASCULAR: Regular rate and rhythm without murmurs, gallops, or rubs. RESPIRATORY: Clear to auscultation. Breath sounds equal bilaterally. No wheezes, rales, or rhonchi. GASTROINTESTINAL: Abdomen soft, tenderness in epigastric area, nondistended NEURO: AOx3. SKIN: No rash or erythema of visible areas <John Meneses DO - Last Filed: 11/21/22 22:14> Initial Vital Signs Initial Vital Signs: Vital Signs Temperature 98.9 F 11/21/22 18:25 Pulse Rate 110 H 11/21/22 18:25 Respiratory Rate 18 11/21/22 18:25 Blood Pressure 134/102 H 11/21/22 18:25 Pulse Oximetry 100 11/21/22 18:25 Oxygen Delivery Method Room Air 11/21/22 18:25 Course <Shelli Raza PA-C - Last Filed: 11/21/22 19:43> Orders Ordered: ED Orders 11/21/22 19:03 CXR [XR chest 2V] Stat EKG-12 Lead Stat 11/21/22 19:44 CBC Auto Diff [Complete Blood Count AUTO DIFF] Stat CMP [Comprehensive Metabolic Panel] Stat Lipase Stat Vital Signs Vital signs: Vital Signs - 8 hr 11/21/22 18:25 11/21/22 18:41 11/21/22 18:43 Temperature 98.9 F Pulse Rate 110 H 92 H Respiratory Rate 18 Blood Pressure 134/102 H 165/81 H Pulse Oximetry 100 99 Oxygen Delivery Method Room Air Room Air 11/21/22 21:08 Temperature Pulse Rate 90 Respiratory Rate 16 Blood Pressure 156/74 H Pulse Oximetry 99 Oxygen Delivery Method Room Air <John Meneses DO - Last Filed: 11/21/22 22:14> Orders Ordered: ED Orders 11/21/22 19:03 CXR [XR chest 2V] Stat EKG-12 Lead Stat 11/21/22 19:44 CBC Auto Diff [Complete Blood Count AUTO DIFF] Stat CMP [Comprehensive Metabolic Panel] Stat Lipase Stat Vital Signs Vital signs: Vital Signs - 8 hr 11/21/22 18:25 11/21/22 18:41 11/21/22 18:43 Temperature 98.9 F Pulse Rate 110 H 92 H Respiratory Rate 18 Blood Pressure 134/102 H 165/81 H Pulse Oximetry 100 99 Oxygen Delivery Method Room Air Room Air 11/21/22 21:08 Temperature Pulse Rate 90 Respiratory Rate 16 Blood Pressure 156/74 H Pulse Oximetry 99 Oxygen Delivery Method Room Air [facility] - Chest Pain <Shelli Raza PA-C - Last Filed: 11/21/22 19:43> Lab Data 11/21/22 19:44 11/21/22 19:44 Labs: Lab Results 11/21/22 11/21/22 Range/Units 19:44 19:44 WBC 12.6 H (4.5-11.0) X10^3/uL RBC 4.80 (4.0-5.2) X10^6/uL Hgb 14.1 (12.0-16.0) g/dL Hct 41.3 (36-46) % MCV 85.9 (80-100) fL MCH 29.4 (26-34) PG MCHC 34.2 (30-36) % RDW 13.0 (11.6-14.8) % Plt Count 292 (150-400) X10^3/uL Neut % (Auto) 61.9 (50-75) % Lymph % (Auto) 30.3 (25-40) % [place] % (Auto) 6.3 (3-14) % Eos % (Auto) 1.0 L (2-4) % Baso % (Auto) 0.5 (0-2) % Neut # (Auto) 7800 H (8552-5790) /uL Lymph # (Auto) 3800 (9820-3957) /uL [place] # (Auto) 800 (0-900) /uL Eos # (Auto) 100 (0-450) /uL Baso # (Auto) 100 (0-100) /uL Sodium 139 (137-145) mmol/L Potassium 3.9 (3.4-5.1) mmol/L Chloride 102 (98-107) mmol/L Carbon Dioxide 28 (22-32) mmol/L BUN 11 (7-17) mg/dL Creatinine 0.58 (0.52-1.04) mg/dL Estimated GFR > 60 (>60) mL/min BUN/Creatinine Ratio 19.0 (6-22) Glucose 87 (70-100) mg/dL Calcium 9.4 (8.4-10.2) mg/dL Total Bilirubin 0.4 (0.2-1.3) mg/dL AST 23 (14-36) IU/L ALT 23 (<35) IU/L Alkaline Phosphatase 112 (38-126) U/L Total Protein 8.1 (6.3-8.2) g/dL Albumin 4.5 (3.5-5.0) g/dL Globulin 3.6 (1.7-4.1) g/dL Albumin/Globulin Ratio 1.3 (1.0-2.8) Lipase 62 (23-300) U/L ECG Data Interpretation: Normal sinus rhythm, no T-wave elevations noted, [place] interval is appropriate, a QT interval is less than 440, normal axis deviation MDM Narrative Medical decision making narrative: Patient is a 22-year-old female presenting for evaluation of chest pain on and off for the last 3 weeks worsening over the last week accompanied by shortness of breath and nausea but unrelated to activity level. Her family history is concerning for early cardiac events in her mom who had a stent at age 30. However, my suspicion for cardiac events in [place] today is low because her chest pain was reproducible on physical exam with external pressure in her history indicates that exertion does not affect the occurrence of her chest pain. Abdominal exam was positive for epigastric pain on palpation which patient says is separate from her chest pain and chronically present. EKG reviewed with Dr. Meneses showed no abnormal findings. Chest x-ray has been ordered as well as CBC, CBC and lipase. Multiple etiologies for patient's symptoms considered including, but not limited to: ACS, GERD, gastric ulcer, cholecystitis Prior Charts reviewed: Seen 08/2021 for atypical chest pain with no specific findings. Labs reviewed and interpreted by myself: Awaiting CBC, CMP, lipase Imaging reviewed:Awaiting CXR results. Reviewed and transferred case to Dr. Meneses. Findings and discharge diagnosis discussed with patient/family followed by verbalization of understanding Return precautions discussed with patient/family whom verbalize understanding of diagnosis and plan <John Meneses, DO - Last Filed: 11/21/22 22:14> Lab Data Labs: Lab Results 11/21/22 11/21/22 Range/Units 19:44 19:44 WBC 12.6 H (4.5-11.0) X10^3/uL RBC 4.80 (4.0-5.2) X10^6/uL Hgb 14.1 (12.0-16.0) g/dL Hct 41.3 (36-46) % MCV 85.9 (80-100) fL MCH 29.4 (26-34) PG MCHC 34.2 (30-36) % RDW 13.0 (11.6-14.8) % Plt Count 292 (150-400) X10^3/uL Neut % (Auto) 61.9 (50-75) % Lymph % (Auto) 30.3 (25-40) % [place] % (Auto) 6.3 (3-14) % Eos % (Auto) 1.0 L (2-4) % Baso % (Auto) 0.5 (0-2) % Neut # (Auto) 7800 H (3366-2413) /uL Lymph # (Auto) 3800 (2779-1606) /uL [place] # (Auto) 800 (0-900) /uL Eos # (Auto) 100 (0-450) /uL Baso # (Auto) 100 (0-100) /uL Sodium 139 (137-145) mmol/L Potassium 3.9 (3.4-5.1) mmol/L Chloride 102 (98-107) mmol/L Carbon Dioxide 28 (22-32) mmol/L BUN 11 (7-17) mg/dL Creatinine 0.58 (0.52-1.04) mg/dL Estimated GFR > 60 (>60) mL/min BUN/Creatinine Ratio 19.0 (6-22) Glucose 87 (70-100) mg/dL Calcium 9.4 (8.4-10.2) mg/dL Total Bilirubin 0.4 (0.2-1.3) mg/dL AST 23 (14-36) IU/L ALT 23 (<35) IU/L Alkaline Phosphatase 112 (38-126) U/L Total Protein 8.1 (6.3-8.2) g/dL Albumin 4.5 (3.5-5.0) g/dL Globulin 3.6 (1.7-4.1) g/dL Albumin/Globulin Ratio 1.3 (1.0-2.8) Lipase 62 (23-300) U/L Imaging Data Chest x-ray: Radiologist's Impression: PROCEDURE:? XR CHEST 2V ? INDICATIONS:? Chest discomfort ? TECHNIQUE:? 2 views of the chest were acquired.? ? COMPARISON:? [facility], CR, XR CHEST 1V, 08/29/2021, 19:55.? [facility], CR, XR CHEST 1V, 04/19/2019, 20:20. ? FINDINGS:? ? Surgical changes and devices:? None.? ? Lungs and pleura:? Lungs are clear.? No pleural effusions or pneumothorax.? Low lung volumes. ? Mediastinum:? Mediastinal contours are normal.? Heart size is normal.? ? Bones and chest wall:? No suspicious bony abnormalities.? Soft tissues appear unremarkable.? ? IMPRESSION:? Low lung volumes limiting evaluation.? No acute radiographic abnormality. MDM Narrative Medical decision making narrative: Patient is a 22-year-old female presenting for evaluation of chest pain on and off for the last 3 weeks worsening over the last week accompanied by shortness of breath and nausea but unrelated to activity level. Her family history is concerning for early cardiac events in her mom who had a stent at age 30. However, my suspicion for cardiac events in [place] today is low because her chest pain was reproducible on physical exam with external pressure in her history indicates that exertion does not affect the occurrence of her chest pain. Abdominal exam was positive for epigastric pain on palpation which patient says is separate from her chest pain and chronically present. EKG reviewed with Dr. Meneses showed no abnormal findings. Chest x-ray has been ordered as well as CBC, CBC and lipase. Multiple etiologies for patient's symptoms considered including, but not limited to: ACS, GERD, gastric ulcer, cholecystitis Prior Charts reviewed: Seen 08/2021 for atypical chest pain with no specific findings. Labs reviewed and interpreted by myself: Awaiting CBC, CMP, lipase Imaging reviewed:Awaiting CXR results. Reviewed and transferred case to Dr. Meneses. Findings and discharge diagnosis discussed with patient/family followed by verbalization of understanding Return precautions discussed with patient/family whom verbalize understanding of diagnosis and plan Dr meneses: I did receive turned over. Reviewed patient's history and physical exam. Her labs are unremarkable. EKG is unremarkable. Chest x-ray is unremarkable. I do have low suspicion for ACS however she does have a significant family history of this. Advised that she talk with her primary doctor about a follow-up and to discuss a stress test. She was given return precautions. She expressed understanding and agreement. Discharge Plan Departure Patient Disposition: Home Clinical Impression: Atypical chest pain Instructions: DI for Atypical Chest Pain Activity Restrictions/Additional Instructions: I do recommend that you continue any medications as directed. Contact your primary doctor to discuss the indications for a stress test. Return to the emergency department for new symptoms. Prescriptions: No Action ketorolac 10 mg tablet 10 mg PO Q6H PRN (Reason: pain) Qty: 14 0RF pantoprazole [Protonix] 40 mg tablet,delayed release (DR/EC) 40 mg PO DAILY Qty: 30 0RF ondansetron 4 mg tablet,disintegrating 4 mg PO TID-QID PRN (Reason: nausea and vomiting) Qty: 10 0RF Referrals: Miscellaneous,Doctor, MD [Primary Care Provider] - Stand Alone Forms: Patient Portal/API
[2022-11-21 18:41] VITALS: BP 165/81
[2022-11-21 18:43] VITALS: PULSE 92; O2SAT 99
--- NOTE | 2022-11-21 19:03 | DI.RAD.S_ITS ---
PROCEDURE: XR CHEST 2V INDICATIONS: Chest discomfort TECHNIQUE: 2 views of the chest were acquired. COMPARISON: [facility], CR, XR CHEST 1V, 08/29/2021, 19:55. [facility], CR, XR CHEST 1V, 04/19/2019, 20:20. FINDINGS: Surgical changes and devices: None. Lungs and pleura: Lungs are clear. No pleural effusions or pneumothorax. Low lung volumes. Mediastinum: Mediastinal contours are normal. Heart size is normal. Bones and chest wall: No suspicious bony abnormalities. Soft tissues appear unremarkable. IMPRESSION: Low lung volumes limiting evaluation. No acute radiographic abnormality. Dictated by: Lito Parisi M.D. on 11/21/2022 at 20:28 Approved by: Lito Parisi M.D. on 11/21/2022 at 20:29
[2022-11-21 19:51] LABS: Add Manual Diff / Slide Review NO; Basophils Absolute Auto 100 /uL (0-100); Basophils Percent Auto 0.5 % (0-2); Eosinophils Absolute Auto 100 /uL (0-450); Hematocrit 41.3 % (36-46); Hemoglobin 14.1 g/dL (12.0-16.0); Lymphocytes Absolute Auto 3800 /uL (1100-4500); Lymphocytes Percent Auto 30.3 % (25-40); Mean Corpuscular HGB Conc 34.2 % (30-36); Mean Corpuscular Hemoglobin 29.4 PG (26-34); Mean Corpuscular Volume 85.9 fL (80-100); Monocytes Absolute Auto 800 /uL (0-900); Monocytes Percent Auto 6.3 % (3-14); Neutrophils Absolute Auto 7800 /uL (1500-7000); Neutrophils Percent Auto 61.9 % (50-75); Platelet Count 292 X10^3/uL (150-400); White Blood Cell Count 12.6 X10^3/uL (4.5-11.0)
[2022-11-21 20:10] LABS: Alanine Aminotransferase 23 IU/L (<35); Albumin 4.5 g/dL (3.5-5.0); Albumin Globulin Ratio 1.3 (1.0-2.8); Alkaline Phosphatase 112 U/L (38-126); Aspartate Aminotransferase 23 IU/L (14-36); Bilirubin Total 0.4 mg/dL (0.2-1.3); Blood Urea Nitrogen 11 mg/dL (7-17); Calcium 9.4 mg/dL (8.4-10.2); Carbon Dioxide 28 mmol/L (22-32); Chloride 102 mmol/L (98-107); Estimated Glomerular Filt Rate > 60 mL/min (>60); Globulin 3.6 g/dL (1.7-4.1); Glucose 87 mg/dL (70-100); HEMOLYSIS < 15 (0-50); Lipase 62 U/L (23-300); Potassium 3.9 mmol/L (3.4-5.1); Sodium 139 mmol/L (137-145); Total Protein 8.1 g/dL (6.3-8.2)
[2022-11-21 21:08] VITALS: BP 156/74; PULSE 90; RESP 16; O2SAT 99
== END 2022-11-21 21:08 | disposition home or self-care (01) ==
PROVIDERS: Emergency Provider Physician Assistant
DX: R07.89 Other chest pain (principal); R06.02 Shortness of breath
CPT/HCPCS: 36415; 71046; 80053; 83690; 85025; 93005; 99283

== ENCOUNTER 2023-02-23 07:30 | Day surgery (SDC) | payer OTHER, MEDICAID, SELFPAY ==
[2023-02-20 13:17] VITALS: BMI 47.0
--- NOTE | 2023-02-23 08:51 | P.OP_ITS ---
Operative Date/Time/Diagnoses Date of procedure: 02/23/23 Time of procedure: 11:03 Pre-op diagnosis: Chronic tonsillitis, throat pain, upper airway obstruction, tonsillar hypertrophy Post-op diagnosis: same Procedure & Clinicians Procedure: Tonsillectomy Same procedure as scheduled: Yes Indications: 23 Year old with the above diagnoses incompletely managed with medical therapy presents for the above procedure. Following discussion of the material risks benefits complications and alternatives, the patient elected to proceed. Surgeon: Prosper Shaikh Click Yes if Unassisted: Yes Anesthesia Type: General and Local Operative Notes Findings: Intact palate, single uvula, 3+ tonsils, no significant adenoids. Relative macroglossia, obstructive. Estimated Blood Loss (mL): 10 Procedure in detail: Following identification and confirmation of consent the patient was brought to the operating room suite and placed in the supine position. General endotracheal anesthesia was administered. A head wrap, shoulder roll, and mouth gag were placed and a red rubber catheter was inserted through the nostril and out the mouth to retract the soft palate. No significant adenoid tissue was present. The left tonsil was retracted medially and suction electrocautery on a setting of 30 was used to dissect the tonsil in a subcapsular plane, followed by hemostasis with the same. This process was repeated on the right side with identical findings. The tonsillar fossae were superficially infiltrated bilaterally with 2% lidocaine 1 100,000 epinephrine. Mouth gag and rubber catheter were removed and the patient was extubated in the operating room and taken to the recovery room in stable condition without known complication. Complications: none Post-operative Condition: stable Disposition: same day surgery Plan for aftercare: Push fluids, alternate Tylenol and Advil every 3 hours for baseline pain control, oxycodone for breakthrough pain. Soft diet 2 full weeks, no heavy lif ting or straining 2 weeks.
--- NOTE | 2023-02-23 08:51 | PM.PREOP ---
Pre-operative Note Interval Note History & Physical reviewed/Exam performed by Physician: Yes Changes to H&P: No
[2023-02-23 09:20] VITALS: BMI 47.0
[2023-02-23 09:24] VITALS: BP 121/83; PULSE 87; RESP 17; TEMP 36.6; O2SAT 99
[2023-02-23] MEDS: LACTATED RINGERS 1,000 ML 42 ML IV (09:42)
[2023-02-23] MEDS: SCOPOLAMINE 1 PATCH TOP (09:42)
--- NOTE | 2023-02-23 10:38 | SUR.OPER ---
Supine on padded OR bed, head on pillow, arms secured on padded arm boards at <90 degrees abduction, legs uncrossed, safety belt at thigh, tape over blanket over lower legs.
[2023-02-23] MEDS: LIDOCAINE 2% W/EPI INJ 20 ML INJ (10:41)
[2023-02-23 11:16] VITALS: BP 130/80; PULSE 93; RESP 20; TEMP 36.3; O2SAT 96
[2023-02-23 11:20] VITALS: BP 129/70; PULSE 93; RESP 20; O2SAT 94
[2023-02-23 11:29] VITALS: BP 117/74; PULSE 93; RESP 15; O2SAT 94
[2023-02-23 11:32] VITALS: BP 125/86; PULSE 100; RESP 12; TEMP 36.7; O2SAT 100
[2023-02-23] MEDS: OXYCODONE IR 5 MG TABLET PO (11:55)
== END 2023-02-23 12:02 | disposition home or self-care (01) ==
PROVIDERS: PCP Internal Medicine; Referring Provider Otolaryngology; Visit Provider Otolaryngology
PROC: (CPT 42826; principal; 2023-02-23 09:45)
DX: J35.01 Chronic tonsillitis (principal); J98.8 Other specified respiratory disorders; Q38.2 Macroglossia
CPT/HCPCS: 42826; J3010

== ENCOUNTER 2023-02-28 00:24 | Emergency (ER) | payer OTHER, MEDICAID, SELFPAY ==
[2023-02-28 00:30] VITALS: BP 132/65; PULSE 84; RESP 18; TEMP 36.6; O2SAT 96; BMI 47.0
--- NOTE | 2023-02-28 01:00 | PC.NURSE ---
pt recently had tonsils removed, c/o throat pain that is unrelieved with oxycodone, pt only takes 1/2 tablet because she does not like the way a whole tablet makes her feel (dizzy and drunk), explained to pt that her pain would not be completely relieved until the area healed and taking a whole tablet might benefit her and help her to rest, pt given ice chips
[2023-02-28] MEDS: KETOROLAC 30 MG/ML VIAL 15 MG IV (01:44)
--- NOTE | 2023-02-28 02:12 | ED.GENADULT ---
HPI - General Adult General Chief complaint: Upper Respiratory Symptoms Stated complaint: had tonsils taken out and is in pain 02/23 Time Seen by Provider: 02/28/23 01:42 Source: patient Mode of arrival: Ambulatory History of Present Illness HPI narrative: 23-year-old woman with a history of chronic tonsillitis who is post tonsillectomy as of February 23. Surgery itself went well but she is been having significant postoperative pain. A full dose of oxycodone makes her feel ?drunk? so Dr. Shaikh suggested taking half a pill which has not been effective for her. She has uncontrolled pain is unable to eat or drink is having difficulty talking and feeling miserable. She is not describing fevers there has been no vomiting and no bleeding at the operative site. Related Data Home Medications Medication Instructions Recorded Confirmed albuterol sulfate 90 mcg/actuation 2 puff inhalation Q4H PRN Dyspnea 02/23/23 02/23/23 aerosol inhaler losartan 25 mg tablet 25 mg PO QPM 02/23/23 02/23/23 sucralfate 100 mg/mL oral 10 ml PO 3XD heartburn 02/23/23 02/23/23 suspension Allergies Allergy/AdvReac Type Severity Reaction Status Date / Time pork derived (porcine) Allergy Anaphylaxis Verified 02/23/23 09:18 Review of Systems Review of Systems Narrative: Pertinent positive and negative findings as per HPI Patient History Surgical History History of tonsillectomy Family History Mother Heart attack Social History household members: family Smoking Status: Never smoker alcohol intake: current Smoking Status: Never smoker alcohol intake frequency: holidays/special occasions only Substance Use Type: does not use Exam Initial Vital Signs Initial Vital Signs: Vital Signs Temperature 98 F 02/28/23 00:30 Pulse Rate 84 02/28/23 00:30 Respiratory Rate 18 02/28/23 00:30 Blood Pressure 132/65 02/28/23 00:30 Pulse Oximetry 96 02/28/23 00:30 Oxygen Delivery Method Room Air 02/28/23 00:30 General: Young woman who appears to feel unwell obviously in pain difficult to speak due to postoperative pain. HEENT: Moist mucous membranes, normal sclera with reactive pupils, tonsillar Neck: No JVD, supple Respiratory: Lungs are clear to auscultation, no wheezing no rales no rhonchi. Full and symmetrical air movement Cardiac: Regular rate and rhythm no murmurs no bruits Abdomen: Soft, nontender, good bowel tones, no flank pain Skin: Warm and dry, no rashes Neurologic: Grossly neurologically intact with no obvious asymmetries or abnormalities Extremities: No trauma, well perfused Psych: Cooperative, appropriate insight and affect Course Orders Ordered: ED Orders 02/28/23 02:32 Complete Blood Count AUTO DIFF Stat Comprehensive Metabolic Panel Stat Discontinued Medications Sodium Chloride (Normal Saline 0.9%) 1,000 mls @ 1,000 mls/hr IV BOLUS ONE Stop: 02/28/23 03:13 Last Admin: 02/28/23 02:28 Dose: 1,000 mls/hr Documented By: RICKEY Ketorolac Tromethamine (Ketorolac 30 Mg/Ml Vial) 15 mg IV NOW ONE Stop: 02/28/23 01:42 Last Admin: 02/28/23 01:44 Dose: 15 mg Documented By: RICKEY Methylprednisolone (Methylprednisolone 125 Mg/2 Ml Vial) 125 mg IV NOW ONE Stop: 02/28/23 02:15 Last Admin: 02/28/23 02:27 Dose: 125 mg Documented By: RICKEY Vital Signs Vital signs: Vital Signs - 8 hr 02/28/23 00:30 Temperature 98 F Pulse Rate 84 Respiratory Rate 18 Blood Pressure 132/65 Pulse Oximetry 96 Oxygen Delivery Method Room Air Medical Decision Making Lab Data 02/28/23 02:32 02/28/23 02:32 Labs: Lab Results 02/28/23 Range/Units 02:32 WBC 11.1 H (4.5-11.0) X10^3/uL RBC 4.49 (4.0-5.2) X10^6/uL Hgb 13.1 (12.0-16.0) g/dL Hct 39.1 (36-46) % MCV 87.2 (80-100) fL MCH 29.3 (26-34) PG MCHC 33.5 (30-36) % RDW 13.2 (11.6-14.8) % Plt Count 281 (150-400) X10^3/uL Neut % (Auto) 60.8 (50-75) % Lymph % (Auto) 30.2 (25-40) % [place] % (Auto) 7.0 (3-14) % Eos % (Auto) 1.5 L (2-4) % Baso % (Auto) 0.5 (0-2) % Neut # (Auto) 6700 (2024-2683) /uL Lymph # (Auto) 3400 (0172-4868) /uL [place] # (Auto) 800 (0-900) /uL Eos # (Auto) 200 (0-450) /uL Baso # (Auto) 100 (0-100) /uL Sodium 138 (137-145) mmol/L Potassium 4.1 (3.4-5.1) mmol/L Chloride 106 (98-107) mmol/L Carbon Dioxide 24 (22-32) mmol/L BUN 11 (7-17) mg/dL Creatinine 0.64 (0.52-1.04) mg/dL Estimated GFR > 60 (>60) mL/min BUN/Creatinine Ratio 17.2 (6-22) Glucose 100 (70-100) mg/dL Calcium 9.7 (8.4-10.2) mg/dL Total Bilirubin 0.6 (0.2-1.3) mg/dL AST 30 (14-36) IU/L ALT 44 H (<35) IU/L Alkaline Phosphatase 90 (38-126) U/L Total Protein 7.6 (6.3-8.2) g/dL Albumin 4.1 (3.5-5.0) g/dL Globulin 3.5 (1.7-4.1) g/dL Albumin/Globulin Ratio 1.2 (1.0-2.8) MDM Narrative Medical decision making narrative: CC: Uncontrolled postoperative pain after tonsillectomy February 23 Data collected from: patient, Social determinants of health that may influence the patients condition: Medical records reviewed: Operative notes from tonsillectomy February 23 reviewed Differential considered: Infection, dehydration, uncontrolled pain Exam documented above, pertinent findings include: Moderate swelling to the posterior pharynx. No obvious bleeding, eschar at surgical site appears quite appropriate Lab Test results independently reviewed as above. Pertinent findings: CBC is unremarkable no significant anemia nor infection Chemistries are reassuring no signs of severe dehydration Treatments: L of fluid, Toradol and Solu-Medrol with significant relief of pain Discussion: 23-year-old woman who is 5 days postop tonsillectomy with increasing pain unable to eat and drink and finds that 5 mg of oxycodone makes her sleep all day long. After fluids Toradol and steroid she is feeling significantly better able to actually speak take some sips of fluid. We talked about adding ibuprofen and Tylenol as her primary pain control at this point with half an oxycodone added to that combination if needed at nighttime. Also reviewed with her she is getting very close to the point where her recovery is truly going to be noticeable. There is no evidence of infection or other complication at this time she is safe for discharge home Discharge Plan Departure Patient Disposition: Home Clinical Impression: Post-op pain, Dehydration Activity Restrictions/Additional Instructions: Thank you for coming in today I am sorry that you are hurting so much after your surgery. Unfortunately it is fairly common to hurt this much. You are given a L fluid, IV Toradol as pain medication and some steroid to help with the swelling. It does look like you are feeling significantly better. Using 400 mg of ibuprofen (2 [id number]-[id number] pills) and 1 Tylenol every 6 hours can be very helpful in controlling pain. If you find that your pain is not controlled with this combination you can add half of 1 of the oxycodone pills that you have available at home. Please make sure that you are staying well hydrated. Please keep all scheduled postoperative follow-up appointments If you find that you are getting worse or develop any new symptoms, please feel free to return to the emergency department for further evaluation. Prescriptions: No Action sucralfate 100 mg/mL suspension 10 ml PO 3XD losartan 25 mg tablet 25 mg PO QPM albuterol sulfate 90 mcg/actuation HFA aerosol inhaler 2 puff INHALATION Q4H PRN (Reason: Dyspnea) Referrals: Delta Craig MD [Primary Care Provider] - Stand Alone Forms: Patient Portal/API
[2023-02-28] MEDS: methylPREDNISolone 125 MG/2 ML VIAL IV (02:27)
[2023-02-28] MEDS: SODIUM CHLORIDE 0.9% 1,000 ML 1000 ML IV (02:28)
[2023-02-28 03:09] LABS: Alanine Aminotransferase 44 IU/L (<35); Albumin 4.1 g/dL (3.5-5.0); Albumin Globulin Ratio 1.2 (1.0-2.8); Alkaline Phosphatase 90 U/L (38-126); Aspartate Aminotransferase 30 IU/L (14-36); BUN Creatinine Ratio 17.2 (6-22); Bilirubin Total 0.6 mg/dL (0.2-1.3); Blood Urea Nitrogen 11 mg/dL (7-17); Calcium 9.7 mg/dL (8.4-10.2); Carbon Dioxide 24 mmol/L (22-32); Chloride 106 mmol/L (98-107); Estimated Glomerular Filt Rate > 60 mL/min (>60); Globulin 3.5 g/dL (1.7-4.1); Glucose 100 mg/dL (70-100); HEMOLYSIS 31 (0-50); Potassium 4.1 mmol/L (3.4-5.1); Sodium 138 mmol/L (137-145); Total Protein 7.6 g/dL (6.3-8.2)
[2023-02-28 03:12] LABS: Add Manual Diff / Slide Review NO; Basophils Absolute Auto 100 /uL (0-100); Basophils Percent Auto 0.5 % (0-2); Eosinophils Absolute Auto 200 /uL (0-450); Eosinophils Percent Auto 1.5 % (2-4); Hematocrit 39.1 % (36-46); Hemoglobin 13.1 g/dL (12.0-16.0); Lymphocytes Absolute Auto 3400 /uL (1100-4500); Lymphocytes Percent Auto 30.2 % (25-40); Mean Corpuscular HGB Conc 33.5 % (30-36); Mean Corpuscular Hemoglobin 29.3 PG (26-34); Mean Corpuscular Volume 87.2 fL (80-100); Monocytes Absolute Auto 800 /uL (0-900); Neutrophils Absolute Auto 6700 /uL (1500-7000); Neutrophils Percent Auto 60.8 % (50-75); Platelet Count 281 X10^3/uL (150-400); Red Blood Cell Count 4.49 X10^6/uL (4.0-5.2); Red Cell Distribution Width 13.2 % (11.6-14.8); White Blood Cell Count 11.1 X10^3/uL (4.5-11.0)
[2023-02-28 03:47] VITALS: BP 130/73; PULSE 86; RESP 18; O2SAT 99
== END 2023-02-28 03:49 | disposition home or self-care (01) ==
PROVIDERS: Emergency Provider Emergency Medicine; PCP Internal Medicine
DX: G89.18 Other acute postprocedural pain (principal); E86.0 Dehydration
CPT/HCPCS: 80053; 85025; 96361; 96374; 96375; 99283; 99284; J1885; J2930

== ENCOUNTER 2024-07-01 23:53 | Emergency (ER) | payer OTHER, SELFPAY ==
[2024-07-01 23:59] VITALS: BP 143/89; PULSE 116; RESP 24; TEMP 36.7; O2SAT 91; BMI 43.8
[2024-07-02] MEDS: predniSONE 20 MG TABLET 60 MG PO (00:09)
[2024-07-02] MEDS: ALBUTEROL/IPRATROPIUM 3 ML AMPUL 6 ML INH (00:10)
[2024-07-02 00:11] VITALS: PULSE 127; RESP 24; O2SAT 100
--- NOTE | 2024-07-02 00:38 | PC.NURSE ---
Ambulatory to restroom without difficulty or assistance
[2024-07-02 00:54] VITALS: BP 124/90; PULSE 117; RESP 18; TEMP 37.4; O2SAT 100
--- NOTE | 2024-07-02 01:09 | ED_ITS ---
HPI - SOB/Dyspnea General Chief Complaint: Shortness of Breath/Dyspnea Stated Complaint: hard time breathing Time Seen by Provider: 07/02/24 00:01 Source: patient Mode of arrival: Ambulatory Limitations: no limitations History of Present Illness HPI Narrative: 24-year-old female with history of asthma, never intubated, home inhaler, no chronic or inhaled steroids, has 4 days' duration of dry cough, increasing carmen rtness of breath last couple of days. No fevers or chills. She did have COVID vaccination and booster, no seasonal flu shot this year. No known exposures to persons with known COVID or influenza. Feels more short of breath today. Inhaler running low, we would like refill. Related Data Home Medications Medication Instructions Recorded Confirmed albuterol sulfate 90 mcg/actuation 2 puff inhalation Q4H PRN Dyspnea 02/23/23 02/23/23 aerosol inhaler losartan 25 mg tablet 25 mg PO QPM 02/23/23 02/23/23 sucralfate 100 mg/mL oral 10 ml PO 3XD heartburn 02/23/23 02/23/23 suspension Previous Rx's Medication Instructions Recorded nirmatrelvir 300 mg (150 mg See Rx Instructions PO .COMPLEX 07/02/24 x2)-ritonavir 100 mg tablet,dose #30 ea pack (Paxlovid) prednisone 20 mg tablet 40 mg (2 x 20 mg) PO DAILY 5 days 07/02/24 #10 tabs Allergies Allergy/AdvReac Type Severity Reaction Status Date / Time pork derived (porcine) Allergy Anaphylaxis Verified 02/23/23 09:18 Patient History Surgical History History of tonsillectomy Family History Mother Heart attack Social History household members: family Smoking Status: Never smoker alcohol intake: current Smoking Status: Never smoker alcohol intake frequency: holidays/special occasions only Exam Narrative Exam Narrative: GENERAL: Well-developed patient, in mild distress. HEAD: Atraumatic. Normocephalic. EYES: Pupils equal round and reactive. Extraocular motions intact. No scleral icterus. No injection or drainage. ENT: Nose without bleeding, purulent drainage. Throat without erythema, tonsillar hypertrophy or exudate. Airway patent. NECK: Trachea midline. Non tender CARDIOVASCULAR: Regular rate and rhythm without murmurs, gallops, or rubs. RESPIRATORY: Clear to auscultation. Breath sounds equal bilaterally. No wheezes, rales, or rhonchi. GASTROINTESTINAL: Abdomen soft, non-tender, nondistended. EXTREMITIES: No edema or joint tenderness. BACK: Nontender without deformity or crepitance. No flank tenderness. NEURO: AOx3. Motor functions grossly nonfocal SKIN: No rash or erythema of visible areas Initial Vital Signs Initial Vital Signs: Vital Signs Temperature 98.0 F 07/01/24 23:59 Pulse Rate 116 H 07/01/24 23:59 Respiratory Rate 24 07/01/24 23:59 Blood Pressure 143/89 H 07/01/24 23:59 Pulse Oximetry 91 07/01/24 23:59 Oxygen Delivery Method Room Air 07/01/24 23:59 Course Orders Ordered: ED Orders 07/02/24 00:36 Covid-19 + FLU A/B + RSV - PCR Stat 07/02/24 01:50 XR chest 2V Stat Discontinued Medications Albuterol (Albuterol Hfa Prepack) 1 box MISC DIRECTED ONE Stop: 07/02/24 01:21 Last Admin: 07/02/24 02:04 Dose: 1 box Documented By: LEO Albuterol/Ipratropium (Albuterol/Ipratropium 3 Ml Ampul) 6 ml INH NOW ONE Stop: 07/02/24 00:09 Last Admin: 07/02/24 00:10 Dose: 6 ml Documented By: SUDHA Prednisone (Prednisone 20 Mg Tablet) 60 mg PO NOW ONE Stop: 07/02/24 00:02 Last Admin: 07/02/24 00:09 Dose: 60 mg Documented By: MR Vital Signs Vital signs: Vital Signs - 8 hr 07/01/24 23:59 07/02/24 00:11 07/02/24 00:54 Temperature 98.0 F 99.4 F Pulse Rate 116 H 127 H 117 H Respiratory Rate 24 24 18 Blood Pressure 143/89 H 124/90 Pulse Oximetry 91 100 100 Oxygen Delivery Method Room Air Room Air Room Air Fraction of Inspired Oxygen 21 07/02/24 02:24 Temperature 99.9 F H Pulse Rate 104 H Respiratory Rate 16 Blood Pressure 139/77 Pulse Oximetry 96 Oxygen Delivery Method Room Air Fraction of Inspired Oxygen MDM - SOB/Dyspnea Lab Data Attestation: I reviewed the patient's lab results. Lab results narrative: Urine test negative. Labs: Lab Results 07/02/24 Range/Units 00:36 SARS-CoV-2 (PCR) Positive H (Negative) Influenza A (RT-PCR) Flu a negative (NEGATIVE) Influenza B (RT-PCR) Flu b negative (NEGATIVE) RSV (PCR) Negative (Negative) Point of Care Testing Test Results Negative Imaging Data Chest x-ray: Radiologist's Impression: [address] [address] XRay Report Signed Patient: Sofya Porter MR#: [id number] : 2000 Acct:[id number] Age/Sex: 24 / F Date of Service: 07/02/24 Loc: ED Accession Number: [id number] Procedure: XR chest 2V Ordering Provider: Thong Arrington MD PROCEDURE: XR CHEST 2V INDICATIONS: Covid+ now, hx RAD, eval for infiltrates TECHNIQUE: 2 views of the chest were acquired. COMPARISON: [facility], CR, XR CHEST 2V, 11/21/2022, 19:07. [facility], CR, XR CHEST 1V, 08/29/2021, 19:55. [facility], CR, XR CHEST 1V, 04/19/2019, 20:20. FINDINGS: Surgical changes and devices: None. Lungs and pleura: Lungs are clear. No pleural effusions or pneumothorax. Mediastinum: Mediastinal contours are normal. Heart size is normal. Bones and chest wall: No suspicious bony abnormalities. Soft tissues appear unremarkable. IMPRESSION: No acute cardiothoracic process. Dictated by: Delfin Evans M.D. on 07/02/2024 at 2:02 Approved by: Delfin Evans M.D. on 07/02/2024 at 2:03 [facility] Narrative Medical decision making narrative: 24-year-old female with history of asthma, 4 days cough, increased shortness of breath last couple of days. Afebrile, sirs screen negative, no respiratory distress, no oxygen requirement, lungs clear. COVID/flu/RSV swab pending. Patient would like refill of her albuterol, home pack requested, has spacer to use at home. COVID positive, influenza and RSV negative. Symptoms less than 5 days, she would like Paxlovid after discussion of antiviral therapy, history of asthma risk factor and obesity noted, BMI 44. Paxlovid prescription sent to her pharmacy for 5 day course. We will add chest x-ray. Urine test negative. Chest x-ray shows no infiltrate. Discharged home with family. Discharge Plan Departure Patient Disposition: Home Clinical Impression: Asthma exacerbation, COVID-19 Activity Restrictions/Additional Instructions: History of asthma, inhaler use, recent 4 days of cough, increasing shortness of breath for the last couple of days. No oxygen requirement on triage. I could not hear crackles or wheezing on lung exam. Though I was listening after a breathing treatment, which made you feel better. Home pack albuterol to use with your spacer, 2 puffs 4 times daily. COVID positive, RSV and influenza swabs negative. Chest x-ray normal at this time. Your history of asthma and puts you at increased risk from COVID illness, even though you have had prior vaccination/booster, consider antiviral treatment, symptoms for less than 5 days, Paxlovid prescription for 5 day course sent to your pharmacy, take 1st dose 1st thing in the morning when your pharmacy is open. Prednisone steroid given by mouth, further prednisone prescription sent to your pharmacy to take once daily for 5 days. Consider recheck of your lung exam and symptoms in the next couple of days with your regular doctor. Return to this/nearest emergency department for any change worsening symptoms or any concerns prior. Thank you for allowing our team to evaluate you today. Prescriptions: New prednisone 20 mg tablet 40 mg PO DAILY 5 Days Qty: 10 0RF Paxlovid 300 mg (150 mg x 2)-100 mg tablets,dose pack See Rx Instructions .ROUTE .COMPLEX Qty: 30 0RF Rx Instructions: take TWO 150 mg tablets of nirmatrelvir with ONE 100 mg tablet of ritonavir twice daily for 5 days No Action sucralfate 100 mg/mL suspension 10 ml PO 3XD losartan 25 mg tablet 25 mg PO QPM albuterol sulfate 90 mcg/actuation HFA aerosol inhaler 2 puff INHALATION Q4H PRN (Reason: Dyspnea) Referrals: Craig,Delta, MD [Primary Care Provider] - Stand Alone Forms: Patient Portal/API/Survey
[2024-07-02 01:31] LABS: Influenza A - CEPHEID Flu A NEGATIVE (NEGATIVE); Influenza B - CEPHEID Flu B NEGATIVE (NEGATIVE); Respiratory Syncytial Virus Negative (Negative)
[2024-07-02 01:36] LABS: COVID-19 CEPHEID 4-PLEX PCR POSITIVE (Negative)
--- NOTE | 2024-07-02 01:50 | DI.RAD.S_ITS ---
PROCEDURE: XR CHEST 2V INDICATIONS: Covid+ now, hx RAD, eval for infiltrates TECHNIQUE: 2 views of the chest were acquired. COMPARISON: [facility], CR, XR CHEST 2V, 11/21/2022, 19:07. [facility], CR, XR CHEST 1V, 08/29/2021, 19:55. [facility], CR, XR CHEST 1V, 04/19/2019, 20:20. FINDINGS: Surgical changes and devices: None. Lungs and pleura: Lungs are clear. No pleural effusions or pneumothorax. Mediastinum: Mediastinal contours are normal. Heart size is normal. Bones and chest wall: No suspicious bony abnormalities. Soft tissues appear unremarkable. IMPRESSION: No acute cardiothoracic process. Dictated by: Delfin Evans M.D. on 07/02/2024 at 2:02 Approved by: Delfin Evans M.D. on 07/02/2024 at 2:03
[2024-07-02] MEDS: ALBUTEROL HFA PREPACK 1 BOX MISC (02:04)
[2024-07-02 02:24] VITALS: BP 139/77; PULSE 104; RESP 16; TEMP 37.7; O2SAT 96
== END 2024-07-02 02:25 | disposition home or self-care (01) ==
PROVIDERS: Emergency Provider Emergency Medicine; PCP Internal Medicine
DX: U07.1 COVID-19 (principal); J45.901 Unspecified asthma with (acute) exacerbation; E66.9 Obesity, unspecified; Z68.41 Body mass index [BMI] 40.0-44.9, adult
CPT/HCPCS: 0241U; 71046; 81025; 94640; 99283

== ENCOUNTER 2025-04-30 14:39 | Emergency (ER) | payer OTHER, SELFPAY ==
--- OUTSIDE RECORDS SUMMARY | 2025-04-28 16:21 | XMS_ITS | Continuity of Care Document ---
Author Organization [facility] [place] [address] Phone Care Team Providers Care Sign Wirer Name Role Phone Tomeka Rivera Primary Care Provider Tomeka Rivera Attending Provider Tomeka Rivera Referring Provider [phone] Care Teams Patient Care Team Team Status: Active Member Role/Relationship Status Dates NICK Quiros Primary Care Provider Active Patient Care Team Team Status: Inactive Member Role/Relationship Status Dates NICK Quiros Primary Care Provider Active Start: April 28, 2025 End: April 28, 2025 NICK Quiros Attending Provider Active St art: April 28, 2025 End: April 28, 2025 NICK Quiros Referring Provider Active St art: April 28, 2025 End: April 28, 2025 Chief Complaint and Reason for Visit Chief Complaint Admit Date LABS April 28, 2025 10:49am Allergies, Adverse Reactions, Alerts Allergen Type Severity Reaction Last Updated Verified Status Pork/Porcine Containing Products Allergy Severe Anaphylaxis February 10:26am Yes Active Social History Smoking Status Status Start Date End Date Date of Observa tion Never smoked tobacco (finding) January 24, 2025 8:18am Observation Status Observation Response Date of Response Living arrangement At home January 7:15am Living Situation With spouse/s.o. January 7:15am With family January 24, 2025 7:15am ETOH Use None January 24, 2025 7:15am Psychiatric None June 01 6:23pm Legal Sex Female Sex Assigned At Female February Family History Relationship Condition Age at Onset Recorded Date/T joyce mother Family history of early CAD Unknown Diabetes mellitus Unknown Hypothyroidism Unknown Malignant neoplasm of ovary Unknown Multiple gallstones Unknown Calculus of kidney Unknown father Family history of early CAD Unknown Obesity Unknown great grandfather Diabetes mellitus Unknown Problems Active Problems Problem Diagnosis/Recorded Date Onset Date Status C omments Swelling of left wrist February 21, 2025 10:26am Unknown Active Contraception management May 17, 2024 6:09am Unknown Active Encounter for surveillance of other contraceptives May 17, 2024 6:08am Unknown Active Nexplan on placed 05/2023 Impaired glucose tolerance May 18, 2024 4:08pm Unknown Active Encounter for removal of subdermal contraceptive implant January 20, 2025 2:29pm Unknown Active Fatty liver January 24, 2025 8:08am Unknown Active Asthma, exercise induced May 17, 2024 6:12am Unknown Active PCOS (polycystic ovarian syndrome) May 18, 2024 4:09pm Unknown Active Essential hypertension May 17, 2024 6:11am Unknown Active HPV in female May 17, 2024 6:05am Unknown Active Intertrigo May 17, 2024 6:04am Unknown Active Encounter for Papanicolaou smear for cervical cancer screening January 20, 2025 2:05pm Unknown Active GERD (gastroesophageal reflux disease) May 17, 2024 6:12am Unknown Active Severe obesity (BMI >= 40) May 17, 2024 6:11am Unknown Active Pap smear abnormality of cervix with ASCUS favoring benign May 17, 2024 6:07am Unknown Active HTN (hypertension) January 24, 2025 8:01am Unknown Active Vitamin D deficiency January 24, 2025 8:08am Unknown Active Nodular acne May 17, 2024 3:52pm Unknown Active Inactive/Resolved Problems Problem Diagnosis/Recorded Date Onset Date Status Comments Finger pain August 25, 2014 10:15pm Unknown Resolved Problem List clean-up per request of Phys. EHR Cmte Fasting hyperglycemia May 17, 2024 6:12am Unknown Resolved Capsulitis of temporomandibu lar joint May 17, 2024 6:12am Unknown Resolved Screening examination for venereal disease May 17, 2024 6:10am Unknown Resolved Encounter for gynecological examination (general) (routine) without abnormal findings May 17, 2024 6:07am Unknown Resolved Encounter for test , result unknown May 17, 2024 6:10am Unknown Resolved Contusion of lower back May 20 10:50pm Unknown Resolved Problem List clean-up per request of Phys. EHR Cmte Menorrhagia May 17, 2024 6:11am Unknown Resolved TMJ arthralgia September 25, 2020 11:33pm Unknown Resolved Screening for cervical cancer May 6:10am Unknown Resolved Fall from slip, trip, or stumble May 20, 2020 10:50pm Unknown Resolved Problem List clean-up per request of Phys. EHR Cmte Muscle spasm of back May 19, 2015 9:47pm Unknown Resolved Problem List clean-up per request of Phys. EHR Cmte Screening for hyperlipidemia May 6:11am Unknown Resolved H/O esophagogastroduodenoscopy May 182024 4:14pm Unknown Resolved 11/2022, hiatal hernia S/P tonsillectomy May 18, 2024 4:14pm Unknown Resolved 02/2023 Viral pharyngitis June 01, 2022 3:57pm Unknown Resolved Vaginal irritation May 17, 2024 6:09am Unknown Resolved Screening for thyroid disorder May 172024 6:11am Unknown Resolved Abdominal pain July 28, 2016 8:48pm Unknown Resolved Problem List clean-up per request of Phys. EHR Cmte Vomiting July 28, 2016 8:48pm Unknown Resolved Problem List clean-up per request of Phys. EHR Cmte Medications Medication Status Dose Units Route Directions Qty Days Refills S tart Date Stop Date End Date Reason(s) Instructions Adherence Metformin 750 mg tablet extended release 24 hr Discont inued 750 MG PO every day 90 3 Octobe r 2023 11:00p m Octob er 2023 4:22p m Metformin 750 mg tablet extended release 24 hr Active 750 MG PO every day 90 3 Octobe r 2023 4:22pm Unknown Albuterol Sulfate 90 mcg/actuati on HFA aerosol inhaler Active 2 PUFFS INH Q4H as needed for shortness of breath or wheezing 8.5 0 December 06, 2024 2:42pm Unknown Prednisone 20 MG tablet Discont inued 40 MG PO DAILY 5 0 Mayuar y 2015 12:00a m July 28, 2016 7:50p m 2X 20 MG TABS. QS Cyclobenzap rine 10 MG tablet Discont inued 10 MG PO THREE TIMES A DAY as needed for Spasms 20 0 2015 12:00a m July 28, 2016 7:50p m Ondansetron Hcl (Zofran) 4 MG tablet Discont inued 4 MG PO Q6H as needed for Nausea / Vomiting 10 0 July 27, 2016 11:00p m September 25, 2020 10:35 pm Ibuprofen 800 MG tablet Discont inued 800 MG PO Q8H as needed for PAIN &/OR FEVER 30 0 July 19, 2018 12:00a m September 25, 2020 10:35 pm Dicyclomine 10 MG capsule Discont inued 20 MG PO FOUR TIMES DAILY as needed for Abdominal Pain 15 0 July 19, 2018 12:00a m Janua ry 2020 9:24p m Hydrocodone -Acetaminop hen (Deville 5-325 Tablet) 1 EACH tablet Discont inued 1 EACH PO Q6H as needed for Pain 15 0 2020September 25, 2020 10:35 pm Spironolact one 50 mg tablet Active 50 MG PO EVERY MORNING 30 2 2024 11:00p m Hypertensi on Essential (primary) hypertensi on Unknown Albuterol Sulfate 90 mcg/actuati on HFA aerosol inhaler Discont inued INH 2024 12:00a m Janua ry 2024 3:21p m Epinephrine 0.3 mg/0.3 mL auto-inject or Discont inued SUBQ 2024 12:00a m Janua ry 2024 3:49p m Etonogestre l (Nexplanon) 68 mg implant Discont inued SUBDER M105 2024 12:00a m Janua ry 2024 3:57p m Medroxyprog esterone (Depo-Prove ra) 150 mg/mL suspension Discont inued 150 MG IM As Directed 2024 12:00a m Janua ry 2024 3:22p m Sucralfate 100 mg/mL suspension Discont inued 10 ML PO FOUR TIMES DAILY as needed for heartburn 2024 12:00a m Septe mber 2024 7:14a m take before meals on an empty stomach Losartan 25 mg tablet Discont inued 25 MG PO EVERY EVENING 2024 12:00a m 2024 8:13a m Omeprazole 40 mg capsule,del ayed release(DR/ EC) Discont inued 40 MG PO every day 2024 12:00a m Octob er 2024 10:27 am Albuterol Sulfate 90 mcg/actuati on HFA aerosol inhaler Discont inued 2 PUFFS INH Q4H as needed 2024 12:00a m December 06, 2024 2:43p m Ondansetron 4 mg tablet,disi ntegrating Discont inued 4 MG PO .Q6-8H as needed for nausea and vomiting 2024 12:00a m 2024 3:49p m Inhalationa l Spacing Device (Aerochambe r Mv) spacer Active 0 .Route 2024 12:00a m As directed Cetirizine 10 mg tablet Active 10 MG PO every day 2024 12:00a m Unknown Clindamycin Phosphate 1 % solution Active 1 APPLIC TOP TWICE A DAY 60 5 J 2024 12:00a m Nodular acne Acne vulgaris reduce to once per day once skin condition is improved. Unknown Epinephrine 0.3 mg/0.3 mL auto-inject or Active 0.3 ML SUBQ ONCE as needed for hypersensit ivity reaction 2024 3:48pm Unknown Ondansetron 4 mg tablet,disi ntegrating Active 4 MG PO 3 to 4 times per day as needed for nausea and vomiting 2024 3:49pm Unknown Etonogestre l (Nexplanon) 68 mg implant Discont inued 1 IMPLAN T SUBDER M105 ONCE 2024 3:56pm Sept 2024 7:13a m Immunizations Immunization Event Date Not Given Reason Dose Number [employer] Lot Number Reason(s) Given Vaccine Information Statement (VIS) Detail Administration Location COVID-19 (MODERNA) August 29, 2020 COVID-19 (MODERNA) May 25th, 2021 COVID-19 (MODERNA) August 16, 2021 Diptheria-Tet anus-Pertussi s Ped 2000 Diptheria-Tet anus-Pertussi s Ped 2000 Diptheria-Tet anus-Pertussi s Ped 2000 Diptheria-Tet anus-Pertussi s Ped Novemb er 2003 Hepatitis A (Ped/Adol) 2 Dose December 15, 2003 Hepatitis A (Ped/Adol) 2 Dose Septem josseline 2011 Hepatitis B Pediatric Vaccine Octobe r 1999 Hepatitis B Pediatric Vaccine Mayuar y 2000 Hepatitis B Pediatric Vaccine 2000 Hib (4 series) y 2000 Hib (4 series) 2000 Hib (4 series) 2000 Hib (4 series) Octobe r 2000 Human Papillomaviru s, Quadrivalent Octobe r 2012 Human Papillomaviru s, Quadrivalent Decemb er 2013 Human Papillomaviru s, 9 valent Februa ry 2015 Inactivated Polio Virus r y 2000 Inactivated Polio Virus 2000 Inactivated Polio Virus 2000 Inactivated Polio Virus Septem josseline 2001 Inactivated Polio Virus Novemb er 2003 Influenza, Live, Quadrivalent, Intranasal Octobe r 2012 Influenza, Live, Quadrivalent, Intranasal Decemb er 2013 Meningococcal Conjugate, Quadrivalent (MCV4P) Octobe r 2012 Measles-Mumps -Rubella Octobe r 2000 Measles-Mumps -Rubella Novemb er 2003 Pneumococcal Conjugate, 7 valent Octobe r 2000 Pneumococcal Conjugate, 7 valent December 15, 2003 Influenza, Quadrivalent Februa ry 2015 Influenza, Quadrivalent, PF Decemb er 2016 Influenza, Quadrivalent, PF Novemb er 2022 Tetanus-Dipth eria-Pertussi s Decemb er 2011 Varicella December 15, 2003 Varicella Septem josseline 2011 Relevant Diagnostic Tests and/or Laboratory Data Laboratory Results Test Collection Date/Time Result Date/Time Result Interpretation Reference Range Result Comment Performing Site White Blood Count April 28, 2025 11:03am April 28, 2025 6:25pm 9.0 10*3/uL 4.8-10.8 MA[facility] [id number] [address] [facility] [id number] Red Blood Count April 28, 2025 11:03am April 28, 2025 6:25pm 4.48 10*6/uL 4.20-5.40 MA[facility] [id number] [address] [facility] [address] Hemoglobi n April 28, 2025 11:03am April 28, 2025 6:25pm 13.1 g/dL 12.0-16.0 MAIN LAB [id number] [address] [facility] [address] Hematocri t April 28, 2025 11:03am April 28, 2025 6:25pm 40.4 % 37.0-47.0 MAIN LAB [id number] [address] [facility] [address] Mean Corpuscul ar Volume April 28, 2025 11:03am April 28, 2025 6:25pm 90.2 fL 81.0-99.0 MAIN LAB [id number] [address] [facility] [address] Mean Corpuscul ar Hemoglobi n April 28, 2025 11:03am April 28, 2025 6:25pm 29.2 pg 27.0-31.0 MAIN LAB [id number] [address] [facility] [address] Mean Corpuscul ar Hemoglobi n Concent April 28, 2025 11:03am April 28, 2025 6:25pm 32.4 g/dL 32.0-36.0 MAIN LAB [id number] [address] [facility] [address] Red Cell Distribut ion Width April 28, 2025 11:03am April 28, 2025 6:25pm 12.6 % 12.0-15.0 MAIN LAB [id number] [address] [facility] [address] Platelet Count April 28, 2025 11:03am April 28, 2025 6:25pm 327 10*3/uL 130-450 MAIN LAB [id number] [address] [facility] [address] Mean Platelet Volume April 28, 2025 11:03am April 28, 2025 6:25pm 11.1 fL above high threshold 7.9-10.8 MAIN LAB [id number] [address] [facility] [address] Neutrophi ls # (Auto) April 28, 2025 11:03am April 28, 2025 6:25pm 5.1 10*3/uL 1.5-6.6 MAIN LAB [id number] [address] [facility] [address] Lymphocyt es # (Auto) April 28, 2025 11:03am April 28, 2025 6:25pm 3.0 10*3/uL 1.5-3.5 MAIN LAB [id number] [address] [facility] [address] Monocytes # (Auto) April 28, 2025 11:03am April 28, 2025 6:25pm 0.6 10*3/uL 0.0-1.0 MAIN LAB [id number] [address] [facility] [address] Eosinophi ls # (Auto) April 28, 2025 11:03am April 28, 2025 6:25pm 0.2 10*3/uL 0.0-0.7 MAIN LAB [id number] [address] [facility] [address] Basophils # (Auto) April 28, 2025 11:03am April 28, 2025 6:25pm 0.1 10*3/uL 0.0-0.1 MAIN LAB [id number] [address] [facility] [address] Nucleated Red Blood Cells % April 28, 2025 11:03am April 28, 2025 6:25pm 0.0 /100{WB C} MAIN LAB [id number] [address] [facility] [address] Nucleated RBC Absolute Count (auto) April 28, 2025 11:03am April 28, 2025 6:25pm 0.00 10*3/uL MAIN LAB [id number] [address] [facility] [address] Sodium Level April 28, 2025 11:03am April 28, 2025 6:34pm 138 mmol/L 135-145 MAIN LAB [id number] [address] [facility] [address] Potassium Level April 28, 2025 11:03am April 28, 2025 6:34pm 4.1 mmol/L 3.5-4.5 As of November 2022 testing method has changed, this may include reference ranges. MAIN LAB [id number] [address] [facility] [address] Chloride Level April 28, 2025 11:03am April 28, 2025 6:34pm 104 mmol/L 101-111 As of November 2022 testing method has changed, this may include reference ranges. MAIN LAB [id number] [address] [facility] [address] Carbon Dioxide Level April 28, 2025 11:03am April 28, 2025 6:34pm 29 mmol/L 21-32 As of November 2022 testing method has changed, this may include reference ranges. MAIN LAB [id number] [address] [facility] [address] Anion Gap April 28, 2025 11:03am April 28, 2025 6:34pm 5.0 below low threshold 6-13 MAIN LAB [id number] [address] [facility] [address] Blood Urea Nitrogen April 28, 2025 11:03am April 28, 2025 6:34pm 10 mg/dL 6-20 As of November 2022 testing method has changed, this may include reference ranges. MAIN LAB [id number] [address] [facility] [address] Creatinin e April 28, 2025 11:03am April 28, 2025 6:34pm 0.6 mg/dL 0.6-1.3 As of November 2022 testing method has changed, this may include reference ranges. MAIN LAB [id number] [address] [facility] [address] Estimated GFR (MDRD) April 28, 2025 11:03am April 28, 2025 6:34pm 122 >89 The IDSC-traceab le MDRD Study Equation has been validated extensively in and populations between the ages of 18 and 70 with impaired kidney function (eGFR < 60 mL/min/1.73m 2) and has shown good performance for patients with all common causes of kidney disease. Although this equation has not been validated for patients older than 70, an MDRD-derived eGFR may still be a useful tool for providers caring for patients older than 70.Reference s: http://www.n kdep.nih.gov /lab-evaluat ion/gfr/crea tinine-stand ardization, last updated July 2011. MAIN LAB [id number] [address] [facility] [address] Glucose Level April 28, 2025 11:03am April 28, 2025 6:34pm 86 mg/dL 74-104 As of November 2022 testing method has changed, this may include reference ranges. MAIN LAB [id number] [address] [facility] [address] Calcium Level April 28, 2025 11:03am April 28, 2025 6:34pm 9.3 mg/dL 8.5-10.3 As of November 2022 testing method has changed, this may include reference ranges. MAIN LAB [id number] [address] [facility] [address] Total Bilirubin April 28, 2025 11:03am April 28, 2025 6:34pm 0.6 mg/dL 0.2-1.0 As of November 2022 testing method has changed, this may include reference ranges. MAIN LAB [id number] [address] [facility] [address] Aspartate Amino Transf (AST/SGOT ) April 28, 2025 11:03am April 28, 2025 6:34pm 16 [iU]/L 10-42 As of November 2022 testing method has changed, this may include reference ranges. MAIN LAB [id number] [address] [facility] [address] Alanine Aminotran sferase (ALT/SGPT ) April 28, 2025 11:03am April 28, 2025 6:34pm 29 [iU]/L 10-60 As of November 2022 testing method has changed, this may include reference ranges. MAIN LAB [id number] [address] [facility] [address] Alkaline Phosphata se April 28, 2025 11:03am April 28, 2025 6:34pm 84 [iU]/L 42-121 As of November 2022 testing method has changed, this may include reference ranges. MAIN LAB [id number] [address] [facility] [address] Total Protein April 28, 2025 11:03am April 28, 2025 6:34pm 6.8 g/dL 6.4-8.9 As of November 2022 testing method has changed, this may include reference ranges. MAIN LAB [id number] [address] [facility] [address] Albumin April 28, 2025 11:03am April 28, 2025 6:34pm 4.2 g/dL 3.2-5.5 As of November 2022 testing method has changed, this may include reference ranges. MAIN LAB [id number] [address] [facility] [address] Globulin April 28, 2025 11:03am April 28, 2025 6:34pm 2.6 g/dL 2.1-4.2 MAIN LAB [id number] [address] [facility] [address] Albumin/G lobulin Ratio April 28, 2025 11:03am April 28, 2025 6:34pm 1.6 1.0-2.2 MAIN LAB [id number] [address] [facility] [address] Triglycer ides Level April 28, 2025 11:03am April 28, 2025 6:34pm 164 mg/dL As of November 2022 testing method has changed, this may include reference ranges.Trigl yceride Risk Classificati on<150 mg/dL Zddves655-49 9 mg/dL Borderline Fshk248-394 mg/dL High>500 mg/dL Very High MAIN LAB [id number] [address] [facility] [address] Cholester ol Level April 28, 2025 11:03am April 28, 2025 6:34pm 147 mg/dL <200 As of November 2022 testing method has changed, this may include reference ranges.Total Cholesterol Risk Classificati onCholestero l Level Risk Classificati on ======= ======= <200 mg/dL Desirable 200-239 mg/dL Borderline High >240 mg/dL High MAIN LAB [id number] [address] [facility] [address] LDL Cholester ol, Calculate d April 28, 2025 11:03am April 28, 2025 6:34pm 63 mg/dL <129 LDLD REFERENCE RANGE AND CARDIOVASCUL AR RISK:<130 mg/dL Hypjjxrxi857 -159 mg/dL Borderline High Risk>160 mg/dL High Risk MAIN LAB [id number] [address] [facility] [address] VLDL Cholester ol April 28, 2025 11:03am April 28, 2025 6:34pm 33 mg/dL MAIN LAB [id number] [address] [facility] [address] HDL Cholester ol April 28, 2025 11:03am April 28, 2025 6:34pm 51 mg/dL below low threshold >60 As of November 2022 testing method has changed, this may include reference ranges.[place] Heart Disease Risk Classificati onHDL Level Risk factor====== ===== =< 40 mg/dL major risk > 60 mg/dL negative risk MAIN LAB [id number] [address] [facility] [address] Cholester ol Ratio (LDL/HDL) April 28, 2025 11:03am April 28, 2025 6:34pm 1.2 <4.4 MAIN LAB [id number] [address] [facility] [address] Cholester ol/HDL Ratio April 28, 2025 11:03am April 28, 2025 6:34pm 2.9 <4.4 NATIONAL CHOLESTEROL GUIDELINE [facility] ([facility]) guidelines for classificato n, testing and management of cholesterol levels in adults over 20 years of age. This new classificati on creates three categories of risk for coronary heart disease, regardless of age or sex, according to total amd LDL cholesterols levels: Based on total cholesterol levelDesirab le <200 mg/dlBorderl ine-high 200-239 mg/dlHigh >=240 mg/dl Based on cholesterol ratioCHD RISK CHOL/HDL RATIO------- ----- MALE FEMALE0.5 x Average 3.4 3.31.0 x Average 5.0 4.42.0 x Average 9.6 7.13.0 x Average 13.5 11.0 MAIN LAB [id number] [address] [facility] [address] Thyroid Stimulati ng Hormone (TSH) April 28, 2025 11:03am April 28, 2025 6:54pm 2.16 u[iU]/m L 0.34-5.60 MAIN LAB [id number] [address] [facility] [address] Hemoglobi n A1c Percent April 28, 2025 11:03am April 28, 2025 9:00pm 5.7 % 4.27-6.07 The [place] [employer] (ADA) has made the following recommendati ons:Monitori ng HbA1c in Diabetic Patients:A1c (NGSP%) Goal <8 Less Stringent Goal <7 General Goal <6.5 More Stringent GoalDiagnosi s of Diabetes:A1c (NGSP%) Goal >6.5 Diabetic 5.7-6.4 Pre-Diabetic <5.7 Non-Diabetic MAIN LAB [id number] [address] [facility] [address] Estimated Average Glucose April 28, 2025 11:03am April 28, 2025 9:00pm 117 mg/dL above high threshold 70-100 MAIN LAB [id number] [address] [facility] [address] Advance Directives Advance Directive Response Recorded Date/ Time Advance Directives No April 2:41pm Advance Directives Information Provided No May 13, 2022 2:41pm Insurance Providers Guarantor SYLVIA SETHI Address [address] [address] Contact Info. Home Phone: [phone] Coverage Status Update:2024 Payer Group Member ID Coverage Type Subscriber Relationship to Subscriber Effective Date Expiration Date Comm [facility]lth n Id: [employer] [id number] null SYLVIA SETHI Id: [id number] [address] [address] Home Phone: Email: [email or web address] Self Encounters Encounter Location(s) Arrival/Admit Date Discharge/Departure Date Discharge/Departure Disposition Provider(s) Departed Clinical -Lab [facility] April 28, 2025 10:49am April 28, 2025 11:59pm Discharged to home care or self care (routine discharge) NICK Quiros Plan of Treatment Future Tests Future scheduled test information is unavailable Pending Tests Test Name Ordered Date Scheduled Date Vitamin D 25-Hydroxy April 28, 2025 11:03am Future Visits Future appointment information is unavailable Future Procedures Future procedure information is unavailable Future Medications Future medication information is unavailable Patient Instructions Patient instructions are unavailable
[2025-04-30 15:02] VITALS: BP 131/80; PULSE 94; RESP 17; TEMP 36.8; O2SAT 97; BMI 43.8
--- NOTE | 2025-04-30 16:34 | ED.EXTPRO ---
HPI - Extremity Problem <Jolanta Millan PA-C - Last Filed: 04/30/25 18:52> General Chief complaint: Extremity Problem,Nontraumatic Stated complaint: L wrist, pain x 2months Time Seen by Provider: 04/30/25 16:33 Source: patient Mode of arrival: Family Vehicle History of Present Illness HPI Narrative: Sofya Blanco is a pleasant 25 year old female with a past medical history of HTN, non-insulin dependent T2DM who presents to the emergency department for left wrist pain x 2 months. Patient states symptoms started 2 months ago without a known injury. With the symptoms 1st started the patient noted that her left wrist and forearm were purple and swollen. She went to a walk-in clinic and had x-rays which revealed no fracture but they did advised that she wear splint for 2 weeks. Despite wearing the splint, the pain has persisted for 2 months. She describes pain throughout the entire wrist worse on the thumb side with numbness and tingling extending to all of her fingers. Pain is worst with movement. She does not have any pain bruising or discoloration at this time. She is still able to move all her fingers but she does have significant pain with flexion of her thumb. She is right-hand dominant however she has a benjie however she has stopped doing this for last few weeks. No open wounds, no fevers, no chills, no redness, no history of the VTE, no pain of the elbow upper arm shoulder or neck. She took tylenol this morning which did not help. Related Data Home Medications ?Medication ?Instructions ?Recorded ?Confirmed albuterol sulfate 90 mcg/actuation 2 puff inhalation Q4H PRN Dyspnea 02/23/23 02/23/23 aerosol inhaler losartan 25 mg tablet 25 mg PO QPM 02/23/23 02/23/23 sucralfate 100 mg/mL oral 10 ml PO 3XD heartburn 02/23/23 02/23/23 suspension Previous Rx's ?Medication ?Instructions ?Recorded nirmatrelvir 300 mg (150 mg See Rx Instructions PO .COMPLEX 07/02/24 x2)-ritonavir 100 mg tablet,dose #30 ea pack (Paxlovid) ketorolac 10 mg tablet 10 mg PO Q8H PRN pain #14 tabs 04/30/25 Allergies Allergy/AdvReac Type Severity Reaction Status Date / Time pork derived (porcine) Allergy Anaphylaxis Verified 04/30/25 15:02 Review of Systems <Jolanta Millan PA-C - Last Filed: 04/30/25 18:52> Review of Systems ROS Unobtainable: All systems reviewed & are unremarkable except as noted in HPI and below Patient History <Jolanta Millan PA-C - Last Filed: 04/30/25 18:52> Surgical History History of tonsillectomy Family History Mother Heart attack Social History household members: family Smoking Status: Never smoker alcohol intake: current Smoking Status: Never smoker alcohol intake frequency: holidays/special occasions only Exam <Jolanta Millan PA-C - Last Filed: 04/30/25 18:52> Narrative Exam Narrative: GENERAL: 25 year old patient appears stated age. Well-developed patient, in no acute distress. HEAD: Atraumatic. Normocephalic. NECK: Trachea midline. Cervical ROM intact. No midline cervical tenderness. CARDIOVASCULAR: Regular rate RESPIRATORY: ?Nonlabored respirations. ?Speaking in clear, full sentences. ? EXTREMITIES: Nonfocal tenderness to palpation of the left wrist, worst over the radial aspect. There is no edema, erythema, skin changes. Patient does have reproduction and finger tingling with Tinel's test. She is unable to perform Mackenzie's test due to pain in thumb with the exam. Brisk cap refill in all fingers and 2+ radial pulse. No tenderness to palpation of left forearm, elbow, humerus, shoulder. BACK: Nontender without deformity or crepitance. No flank tenderness. NEURO: AOx3. ?Clear speech. ? SKIN: No rash or erythema of visible areas Initial Vital Signs Initial Vital Signs: Vital Signs Temperature 98.2 F 04/30/25 15:02 Pulse Rate 94 H 04/30/25 15:02 Respiratory Rate 17 04/30/25 15:02 Blood Pressure 131/80 04/30/25 15:02 Pulse Oximetry 97 04/30/25 15:02 Oxygen Delivery Method Room Air 04/30/25 15:02 <Eboni Troy DO - Last Filed: 05/01/25 07:24> Initial Vital Signs Initial Vital Signs: Vital Signs Temperature 98.2 F 04/30/25 15:02 Pulse Rate 94 H 04/30/25 15:02 Respiratory Rate 17 04/30/25 15:02 Blood Pressure 131/80 04/30/25 15:02 Pulse Oximetry 97 04/30/25 15:02 Oxygen Delivery Method Room Air 04/30/25 15:02 Course <Jolanta Millan PA-C - Last Filed: 04/30/25 18:52> Orders Ordered: Discontinued Medications Ketorolac Tromethamine (Ketorolac 30 Mg/Ml Vial) 30 mg IM NOW ONE Stop: 04/30/25 16:40 Last Admin: 04/30/25 16:46 Dose: 30 mg Documented By: TANGELA Vital Signs Vital signs: Vital Signs - 8 hr 04/30/25 15:02 04/30/25 16:35 04/30/25 16:38 Temperature 98.2 F Pulse Rate 94 H 85 Pulse Rate [Left Radial] 85 Respiratory Rate 17 18 Blood Pressure 131/80 158/84 H Pulse Oximetry 97 95 Oxygen Delivery Method Room Air Room Air 04/30/25 18:39 Temperature Pulse Rate 82 Pulse Rate [Left Radial] Respiratory Rate 18 Blood Pressure 154/80 H Pulse Oximetry 95 Oxygen Delivery Method Room Air <Eboni Troy DO - Last Filed: 05/01/25 07:24> Orders Ordered: Discontinued Medications Ketorolac Tromethamine (Ketorolac 30 Mg/Ml Vial) 30 mg IM NOW ONE Stop: 04/30/25 16:40 Last Admin: 04/30/25 16:46 Dose: 30 mg Documented By: MELECIOC Vital Signs Vital signs: Vital Signs - 8 hr 04/30/25 15:02 04/30/25 16:35 04/30/25 16:38 Temperature 98.2 F Pulse Rate 94 H 85 Pulse Rate [Left Radial] 85 Respiratory Rate 17 18 Blood Pressure 131/80 158/84 H Pulse Oximetry 97 95 Oxygen Delivery Method Room Air Room Air 04/30/25 18:39 Temperature Pulse Rate 82 Pulse Rate [Left Radial] Respiratory Rate 18 Blood Pressure 154/80 H Pulse Oximetry 95 Oxygen Delivery Method Room Air MDM - Extremity (Nontraumatic) <Jolanta Millan PA-C - Last Filed: 04/30/25 18:52> Medical Records Attestation: I reviewed the patient's medical records. Imaging Data Left Wrist X-Ray: Radiologist's Impression: PROCEDURE: XR WRIST LT MIN 3V INDICATIONS: left wrist pain x 2 months TECHNIQUE: 4 views of the wrist were acquired. COMPARISON: None. FINDINGS: Bones: No fractures or dislocations. No suspicious bony lesions. Soft tissues: No suspicious soft tissue calcifications. IMPRESSION: No acute bony abnormality. Dictated by: Grabiel Cao M.D. on 04/30/2025 at 17:11 Approved by: Grabiel Cao M.D. on 04/30/2025 at 17:11 Left Hand X-Ray: Radiologist's Impression: PROCEDURE: XR HAND LT MIN 3V INDICATIONS: left wrist and hand pain x 2 months TECHNIQUE: 3 views of the hand(s) acquired. COMPARISON: None. FINDINGS: Bones: No fractures or dislocations. Carpal bones are normally aligned. No suspicious bony lesions. Soft tissues: No suspicious soft tissue calcifications. IMPRESSION: No acute bony abnormality. Dictated by: Grabiel Cao M.D. on 04/30/2025 at 17:11 Approved by: Grabiel Cao M.D. on 04/30/2025 at 17:12 [facility] Narrative Medical decision making narrative: 25 year old female with a past medical history of HTN, non-insulin dependent T2DM who presents to the emergency department for left wrist pain x 2 months. Differential diagnosis includes but isn't limited to left wrist sprain, strain, fracture, dislocation, de Quervain's tenosynovitis, carpal tunnel syndrome, etc. On exam patient is in no acute distress, nontoxic appearing, vital signs appropriate. She has no visible deformities or abnormalities of the left wrist however she has had pain for 2 months now that causes tingling in her fingers. She does have a positive Tinel's test and she does also have a somewhat positive Mackenzie's test she is unable to even completely took her thumb into her fist due to pain. Pain is primarily over the radial aspect of the wrist but is on the anterior dorsal aspect as well. We will obtain x-ray left wrist and hand and treat with Toradol. Patient's pain did improve after Toradol. X-rays reveal no bony abnormalities. At this time I am worried about possible carpal tunnel syndrome, de Quervain tenosynovitis or another overuse type injury. I did recommend that she wear a thumb spica splint and follow up with Orthopedics for further management in addition to rice therapy. She was prescribed Toradol to use. Verbalized ER return precautions. Patient verbalized understanding of all information agreeable with the plan. She is stable for discharge home. Discharge Plan Departure Patient Disposition: Home Clinical Impression: Left wrist pain Instructions: DI for Wrist Pain Activity Restrictions/Additional Instructions: Dear Ms. Cowart, Thank you for coming to the emergency department. I am very sorry that you have been dealing with left wrist pain for the last 2 months. We repeated x-rays today. Your x-rays do not reveal any bony abnormalities. At this time I do recommend that you continue wearing the left wrist splint and follow up with [facility] for further evaluation and management of your left wrist pain. Please return to the ER immediately if you develop fevers, redness, swelling, chest pain, shortness of breath or any other concerns. You have been prescribed a pain medication called ketorolac were Toradol. Do not take this medication with other NSAIDs such as ibuprofen, Motrin, Advil, naproxen. Please follow up with your primary care doctor within the next 2-3 days for ER follow-up. (If you do not have a PCP you can call [phone]. ?to schedule an appointment with an [facility] Primary Care Provider) IF YOU DEVELOP ANY NEW OR WORSENING SYMPTOMS, RETURN TO THE ER! Please read the attached instructions, they highlight more specific treatments and interventions for you at home. Thank you for letting me participate in your care, Jolanta Millan PA-C Prescriptions: New ketorolac 10 mg tablet 10 mg PO Q8H PRN (Reason: pain) Qty: 14 0RF Rx Instructions: maximum total duration of 5 days from all oral, intranasal, or parenteral formulations No Action sucralfate 100 mg/mL suspension 10 ml PO 3XD losartan 25 mg tablet 25 mg PO QPM albuterol sulfate 90 mcg/actuation HFA aerosol inhaler 2 puff INHALATION Q4H PRN (Reason: Dyspnea) Paxlovid 300 mg (150 mg x 2)-100 mg tablets,dose pack See Rx Instructions .ROUTE .COMPLEX Qty: 30 0RF Rx Instructions: take TWO 150 mg tablets of nirmatrelvir with ONE 100 mg tablet of ritonavir twice daily for 5 days Referrals: Hector Contreras MD [Physician, Orthopedics] Referral Note: Left Wrist Pain Stand Alone Forms: Patient Portal/API ED Sign-out <Eboni Troy, - Last Filed: 05/01/25 07:24> Cosign ED Attending Cosignature Attestation: I was available for consultation.
[2025-04-30 16:35] VITALS: PULSE 85
[2025-04-30 16:38] VITALS: BP 158/84; PULSE 85; RESP 18; O2SAT 95
--- NOTE | 2025-04-30 16:39 | DI.RAD.S_ITS ---
PROCEDURE: XR WRIST LT MIN 3V INDICATIONS: left wrist pain x 2 months TECHNIQUE: 4 views of the wrist were acquired. COMPARISON: None. FINDINGS: Bones: No fractures or dislocations. No suspicious bony lesions. Soft tissues: No suspicious soft tissue calcifications. IMPRESSION: No acute bony abnormality. Dictated by: Grabiel Cao M.D. on 04/30/2025 at 17:11 Approved by: Grabiel Cao M.D. on 04/30/2025 at 17:11
--- NOTE | 2025-04-30 16:43 | DI.RAD.S_ITS ---
PROCEDURE: XR HAND LT MIN 3V INDICATIONS: left wrist and hand pain x 2 months TECHNIQUE: 3 views of the hand(s) acquired. COMPARISON: None. FINDINGS: Bones: No fractures or dislocations. Carpal bones are normally aligned. No suspicious bony lesions. Soft tissues: No suspicious soft tissue calcifications. IMPRESSION: No acute bony abnormality. Dictated by: Grabiel Cao M.D. on 04/30/2025 at 17:11 Approved by: Grabiel Cao M.D. on 04/30/2025 at 17:12
[2025-04-30] MEDS: KETOROLAC 30 MG/ML VIAL IM (16:46)
[2025-04-30 18:39] VITALS: BP 154/80; PULSE 82; RESP 18; O2SAT 95
== END 2025-04-30 18:40 | disposition home or self-care (01) ==
PROVIDERS: Emergency Provider Physician Assistant
DX: M25.532 Pain in left wrist (principal); I10 Essential (primary) hypertension; E11.9 Type 2 diabetes mellitus without complications
CPT/HCPCS: 73110; 73130; 96372; 99283; J1885